=== PATIENT | female | born 1960 | race Caucasian/White ===

== ENCOUNTER 2020-07-13 09:54 | Outpatient (REF) | payer OTHER, SELFPAY ==
[2020-07-13 11:49] LABS: Alanine Aminotransferase 19 U/L (0-31); Anion Gap 13 (12-20); Aspartate Amino Transferase 19 U/L (5-31); Blood Urea Nitrogen 13 mg/dL (9-16); Calcium 9.3 mg/dL (8.4-10.2); Carbon Dioxide 26 mmol/L (22-29); Chloride 110 mmol/L (96-108); Cholesterol 180 mg/dL; Estimated Glomerular Filt Rate > 60; Glucose Fasting 104 mg/dL (60-99); HDL Cholesterol 53 mg/dL; LDL Cholesterol Calculated 112 mg/dl; Potassium 4.3 mmol/L (3.3-5.1); Sodium 145 mmol/L (135-145); Triglycerides 77 mg/dL
[2020-07-13 12:11] LABS: Vitamin D 25-OH Total 42.8 ng/mL (>30)
== END 2020-07-13 09:55 | disposition home or self-care (01) ==
LOC: HO.HMGCLDS 09:54
PROVIDERS: PCP Internal Medicine; Visit Provider Internal Medicine
DX: E78.5 Hyperlipidemia, unspecified (principal); I10 Essential (primary) hypertension; Z78.0 Asymptomatic menopausal state
CPT/HCPCS: 36415; 80048; 80061; 82306; 84450; 84460

== ENCOUNTER 2021-06-01 08:52 | Outpatient (REF) | payer OTHER, SELFPAY ==
[2021-06-01 11:32] LABS: MANUAL DIFF FLAG NO
[2021-06-01 11:38] LABS: Basophils Absolute Auto 0.1 X10*3/uL (0.0-0.2); Basophils Percent Auto 0.9 % (0-2); Eosinophils Absolute Auto 0.4 X10*3/uL (0.0-0.4); Eosinophils Percent Auto 3.8 % (0-4); Hematocrit 44.8 % (37.0-47.0); Hemoglobin 14.6 g/dl (12.0-16.0); Imm Gran Abs Auto 0.11 X10*3/uL (0.00-0.03); Imm Gran Pct Auto 1.1 % (0.0-0.4); Lymphocytes Absolute Auto 1.9 X10*3/uL (1.2-4.9); Mean Corpuscular HGB Conc 32.6 g/dl (31.0-35.0); Mean Corpuscular Hemoglobin 29.1 pg (27.0-33.0); Mean Corpuscular Volume 89.2 fL (80.0-98.0); Mean Platelet Volume 11.4 fL (9.4-12.3); Monocytes Absolute Auto 0.7 X10*3/uL (0.1-1.2); Monocytes Percent Auto 6.9 % (2-11); Neutrophils Absolute Auto 6.5 x10*3/uL (2.0-8.3); Neutrophils Percent Auto 67.3 % (45-73); Platelet Count 229 X10*3/uL (160-400); Red Blood Count 5.02 X10*6/uL (4.20-5.50); Red Cell Distribution Width 13.1 % (11.0-16.0); White Blood Count 9.7 X10*3/uL (4.8-10.8)
[2021-06-01 11:46] LABS: Estimated Average Glucose 114 mg/dL; Hemoglobin A1c % 5.6 %
[2021-06-01 12:13] LABS: Vitamin D 25-OH Total 30.7 ng/mL (>30)
[2021-06-01 12:22] LABS: Alanine Aminotransferase 15 U/L (0-31); Anion Gap 14 (12-20); Aspartate Amino Transferase 18 U/L (5-31); Blood Urea Nitrogen 12 mg/dL (9-16); Calcium 9.7 mg/dL (8.4-10.2); Carbon Dioxide 25 mmol/L (22-29); Chloride 110 mmol/L (96-108); Cholesterol 212 mg/dL; Estimated Glomerular Filt Rate > 60; Glucose Fasting 98 mg/dL (60-99); HDL Cholesterol 46 mg/dL; LDL Cholesterol Calculated 135 mg/dl; Potassium 3.9 mmol/L (3.3-5.1); Sodium 145 mmol/L (135-145); Triglycerides 159 mg/dL
== END 2021-06-01 08:53 | disposition home or self-care (01) ==
LOC: HO.HMGCLDS 08:52
PROVIDERS: Visit Provider Internal Medicine
DX: Z00.01 Encounter for general adult medical examination with abnormal findings (principal); Z14.8 Genetic carrier of other disease; E78.5 Hyperlipidemia, unspecified; I10 Essential (primary) hypertension
CPT/HCPCS: 36415; 80048; 80061; 82306; 83036; 84450; 84460; 85025

== ENCOUNTER 2021-06-24 16:04 | Outpatient (REF) | payer OTHER, SELFPAY ==
--- NOTE | ~2021-06-24 | MM_ITS ---
EXAMINATION: MM SCREENING DIGITAL BREAST TOMOSYNTHESIS, BILATERAL CLINICAL INFORMATION: Screening. Asymptomatic. The lifetime risk of breast cancer based on the Tyrer-Cuzick Model is 4%. COMPARISON: Mammography: 09/07/2018, 07/18/2017, 05/23/2016 TECHNIQUE: Digital breast tomosynthesis is performed in both the craniocaudal and mediolateral oblique views along with computer-aided detection (CAD). Synthesized 2D images are generated from the tomosynthesis. Additional left CC view is provided. FINDINGS: There are scattered areas of fibroglandular density (ACR BI-RADS breast composition Category b). There are no significant masses, abnormal calcifications, or other abnormalities. Parenchymal pattern is similar to prior studies. There are no significant changes. MM/MM tomosynthesis screening BI IMPRESSION: No mammographic evidence of malignancy. ASSESSMENT: BI-RADS 1: Negative RECOMMENDATION: Routine annual mammography screening. This patient's information was entered into a reminder system with a target due date for their next mammogram.
== END 2021-06-24 16:05 | disposition home or self-care (01) ==
LOC: HO.MAMMO 16:04
PROVIDERS: PCP Internal Medicine; Visit Provider Internal Medicine
DX: Z12.31 Encounter for screening mammogram for malignant neoplasm of breast (principal)
CPT/HCPCS: 77063; 77067

== ENCOUNTER 2022-05-31 09:29 | Outpatient (REF) | payer OTHER, SELFPAY ==
[2022-05-31 12:04] LABS: Alanine Aminotransferase 13 U/L (0-31); Anion Gap 15 (12-20); Aspartate Amino Transferase 18 U/L (5-31); Blood Urea Nitrogen 13 mg/dL (9-16); Calcium 9.5 mg/dL (8.4-10.2); Carbon Dioxide 23 mmol/L (22-29); Chloride 109 mmol/L (96-108); Cholesterol 218 mg/dL; Estimated Glomerular Filt Rate > 60; Glucose Fasting 105 mg/dL (60-99); HDL Cholesterol 46 mg/dL; LDL Cholesterol Calculated 140 mg/dl; Potassium 3.7 mmol/L (3.3-5.1); Sodium 143 mmol/L (135-145); Triglycerides 163 mg/dL
[2022-05-31 12:06] LABS: Vitamin D 25-OH Total 32.9 ng/mL (>30)
== END 2022-05-31 09:30 | disposition home or self-care (01) ==
LOC: HO.HMGCLDS 09:29
PROVIDERS: PCP Internal Medicine; Visit Provider Internal Medicine
DX: R73.01 Impaired fasting glucose (principal); N95.9 Unspecified menopausal and perimenopausal disorder; I10 Essential (primary) hypertension; E78.5 Hyperlipidemia, unspecified
CPT/HCPCS: 36415; 80048; 80061; 82306; 84450; 84460

== ENCOUNTER 2022-06-27 08:26 | Outpatient (REF) | payer OTHER, SELFPAY ==
--- NOTE | ~2022-06-27 | MM_ITS ---
EXAMINATION: MM SCREENING DIGITAL BREAST TOMOSYNTHESIS, BILATERAL CLINICAL INFORMATION: Screening. Asymptomatic. The lifetime risk of breast cancer based on the Tyrer-Cuzick Model is 4%. COMPARISON: Multiple prior mammography exams, most recent 06/24/2021. TECHNIQUE: Digital breast tomosynthesis is performed in both the craniocaudal and mediolateral oblique views along with computer-aided detection (CAD). Synthesized 2D images are generated from the tomosynthesis. Additional exaggerated right CC view is provided. FINDINGS: There are scattered areas of fibroglandular density (ACR BI-RADS breast composition Category b). Right CC view has 0.8 cm nodular asymmetric density adjacent to lateral margin pectoralis muscle 12.5 cm from nipple and extending beyond the [id number]. Finding is not demonstrated on the additional exaggerated CC projection nor on the MLO view which includes abundant muscle. There is a dermal lesion close to the expected area on prior right MLO mammography 06/24/2021. Patient will be recalled for further evaluation. Remainder of the breast demonstrate parenchymal pattern similar to prior studies with no developing density or interval mass or architectural abnormality no abnormal calcifications. The axilla and skin contours are unremarkable.. MM/MM tomosynthesis screening BI IMPRESSION: Right: -Nodular asymmetric density extending beyond field of view limited to right CC projection. This may represent artifact from dermal lesion or muscle contour, or perhaps posterior lateral node partially imaged. Remainder of right breast unremarkable. Left: -No mammographic evidence of malignancy. ASSESSMENT: BI-RADS 0: Incomplete - Need Additional Imaging Evaluation RECOMMENDATION: 1. Assess for dermal lesion and obtain images with skin marker if applicable. 2. Otherwise, targeted ultrasound posterior outer right breast. 3. Radiology department staff will contact the patient for additional imaging. This patient's information was entered into a reminder system with a target due date for their next mammogram.
== END 2022-06-27 08:27 | disposition home or self-care (01) ==
LOC: HO.MAMMO 08:26
PROVIDERS: Visit Provider Internal Medicine
DX: Z12.31 Encounter for screening mammogram for malignant neoplasm of breast (principal)
CPT/HCPCS: 77063; 77067

== ENCOUNTER 2022-07-12 08:54 | Outpatient (REF) | payer OTHER, SELFPAY ==
--- NOTE | ~2022-07-12 | US_ITS ---
EXAMINATION: US DIAGNOSTIC ULTRASOUND BREAST, RIGHT CLINICAL INFORMATION: Recall from screening for nodular asymmetric density right CC view at posterior outer film margin, adjacent to muscle. COMPARISON: Multiple prior mammography, most recent 06/27/2022. TECHNIQUE: Ultrasound right breast is performed with grayscale imaging and color Doppler without and with harmonics. Exam is targeted to the deep breast along the chest wall soft tissues. FINDINGS: Clinical inspection of the breast shows a small mole lower outer breast not corresponding to size or location of the finding for recall. Ultrasound demonstrates a benign lymph node 9:00 position right lateral breast 12 cm from nipple, similar location and size to the finding on recent mammography. This shows normal kings architecture and color flow. This is most likely responsible for finding on recent imaging. Additional ultrasound along the posterior right breast shows normal breast parenchyma and normal chest wall tissues. There is no cystic or solid mass or architectural abnormality. Results are discussed with the patient at time of visit. US/US breast RT limited IMPRESSION: -Normal lymph node right breast corresponding to finding on recent mammography. -No additional findings. ASSESSMENT: BI-RADS 2: Benign RECOMMENDATION: Routine annual mammography screening. This patient's information was entered into a reminder system with a target due date for their next mammogram.
== END 2022-07-12 08:55 | disposition home or self-care (01) ==
LOC: HO.MAMMO 08:54
PROVIDERS: PCP Internal Medicine; Visit Provider Internal Medicine
DX: R92.2 Inconclusive mammogram (principal)
CPT/HCPCS: 76642

== ENCOUNTER 2022-11-22 08:19 | Outpatient (AMB) | payer OTHER, SELFPAY ==
--- NOTE | 2022-11-22 08:24 | A.OFFPC_ITS ---
Vital Signs 11/22/22 08:27 11/22/22 09:00 Height 5 ft 5 in Weight 170 lb BMI 28.3 BP 190/100 H 160/90 H Blood Pressure Location Rt brachial Lt brachial Position Sitting Sitting Pulse 60 Pulse Source Pulse Oximeter Pulse Oximetry (%) 99 Oxygen Delivery Method Room Air Intake Visit Reasons: Annual PE Intake Note: Pt is here today for her PE: Pt says hasn't taken her b/p this morning Allergies vaccine adjuvant system, AS01B lipo [Shingrix (PF)] Allergy (Unknown, Verified 11/22/22 08:38) rash varicella-zoster virus glycoprotein [Shingrix (PF)] Allergy (Unknown, Verified 11/22/22 08:38) rash Medication List - Last Reconciled 11/22/22 by Joelle Chaudhry MD albuterol sulfate 90 mcg/actuation 2 inhalations inhalation Q4-6H PRN atorvastatin 20 mg PO DAILY calcium carb,lactat-vitamin D3 200 mg-6.25 mcg (250 unit) 2 tabs PO QAM cholecalciferol (vitamin D3) 25 mcg PO DAILY fluticasone propionate 110 mcg/actuation (Flovent HFA) 2 puffs inhalation Q12H lansoprazole 30 mg PO DAILY lisinopril 10 mg PO DAILY lorazepam 0.5 mg PO BEDTIME PRN multivitamin 1 tab PO DAILY quetiapine 100 mg PO BEDTIME sertraline 150 mg (1.5 x 100 mg) PO DAILY zolpidem 10 mg PO BEDTIME PRN Tobacco use date assessed: 11/22/22 Dental Screening Dental Screen Date: 11/22/22 Did you have a dental visit in the last 12 months?: Yes Did you have a dental problem in the last 6 months where you did not have access to dental care?: No Was dental information given to patient?: Patient has dentist HPI Annual PE HPI Details 62-year-old lady here today for her physical exam, she has hypertension currently taking lisinopril 10 mg daily he, but forgot to take her blood pressure medicine this morning. Blood Pressure is high today, but patient denies any headache, no lightheadedness, no chest pain or shortness of breath . She has lost weight, has been exercising and following low-cholesterol low carb diet. Patient states that she feels better now that she has lost some weight. Still has problems with insomnia for which she takes zolpidem. 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 He has depression, currently stable controlled on sertraline and quetiapine, takes lorazepam as needed for acute attacks anxiety. Has mild intermittent asthma, these only albuterol inhalers as needed, and is on Flovent 110 mcg 2 puffs inhalation twice a day. Up-to-date with her screening mammogram, no longer gets Pap smears due to previousTAH-BSO will cancer prophylaxis. 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 Depression with anxiety Dyslipidemia Essential hypertension GERD (gastroesophageal reflux disease) Impaired fasting glucose Mild intermittent asthma Primary insomnia Wound, open, knee, lower leg, or ankle with complication Surgical History Amblyopia History of appendectomy History of hemorrhoidectomy History of oral surgery History of total hysterectomy with bilateral salpingo-oophorectomy (BSO) Family History Father Prostate cancer Hypertension Mother Colon cancer Vasculitis Mental health disorder Brother Colon cancer Sister Endometrial cancer Maternal Grandmother Colon cancer Social History Housing: Apartment Alcohol intake: current Patient Tobacco Use Status: Former Tobacco user e-Cigarette/Vaping Use: Never Used service: No Current occupational status: employed Cognitive needs: No Hearing needs: No Vision needs: Yes Questionnaire Thrive Questionnaire Date Thrive assessed: 05/19/22 AUDIT C Alcohol Use Questionnaire (AUDIT-C) 1. How often do you have a drink containing alcohol?: Monthly or less 2. How many drinks containing alcohol do you have on a typical day when you are drinking?: 1 or 2 3. How often do you have six or more drinks on one occasion?: Never Total Score: 1 LULA-7 AMB Questionnaire LULA-7 Date LULA - 7 assessed: 05/19/22 Source: Developed by Drs. Manuel Vale, Eneida Hernandez, Sancho Magaña and colleagues, with an educational hamzah from [employer]. ACT Questionnaire In the past 4 weeks, how much of the time did your asthma keep you from getting as much done at work, school or at home?: None of the time During the past 4 weeks, how often have you had shortness of breath?: Not at all During the past 4 weeks, how often have you had to use your rescue inhaler or nebulizer medication?: Not at all How would you rate your asthma control during the past 4 weeks?: Well controlled ACT Interpretation: Negative Score: 19 Review of Systems Const Denies body aches, Reports difficulty sleeping (Takes zolpidem as needed), Denies headache(s), Denies lethargy, Denies malaise, Denies weakness and Reports weight loss Eyes Details: Goes to [facility] for routine eye care, no history of glaucoma, no cataracts seen Denies change in vision and Denies dry eyes ENT Details: Complaining of decreased hearing right ear , has frequent wax buildup Reports no additional complaints, Denies vertigo, Denies dizziness, Denies headache(s) and Denies disequilibrium Card Reports no additional complaints Resp Reports no additional complaints GI Reports no additional complaints Reports no additional complaints Musc Denies abnormal gait and Reports stiffness Skin/Breast Denies breast swelling, Denies breast pain, Denies breast mass, Denies dry skin, Denies lesions and Denies rash Neuro Denies Neuro-related abnormal movements, Denies abnormal gait, Denies vertigo, Denies dizziness, Denies headache(s), Denies focal weakness, Denies seizure-like activity, Denies disequilibrium and Denies weakness Psych Reports as per HPI Endo Reports no additional complaints Gary/Lymph Reports no additional complaints Aller/Immun Reports no additional complaints Physical exam (Primary Care) Vital Signs: Last Vital Signs Pulse 60 11/22/22 08:27 BP 160/90 H 11/22/22 09:00 Pulse Ox 99 11/22/22 08:27 Oxygen Delivery Method Room Air 11/22/22 08:27 BMI result Body Mass Index 28.3 Tobacco/Smoking Status: Tobacco use Status Tobacco use date assessed 11/22/22 11/22/22 08:32 Patient Tobacco Use Status Former Tobacco user 11/22/22 08:32 e-Cigarette/Vaping Use Never Used 11/22/22 08:32 Thrive Assessment: Date of Thrive Assessment Date Thrive assessed 05/19/22 11/22/22 08:32 Const General: comfortable, no acute distress and alert Nutritional Appearance: obese Orientation/consciousness: patient oriented x3 Limitations: no limitations HENMT Head: Yes normocephalic Ears: external ears normal and Abnormal EAC present excessive cerumen on the right General nose exam: Normal external nose present and No nasal discharge present Face and sinus: Yes face symmetric Mouth: Normal oral and palatal mucosa present and moist mucous membranes Eyes General: appearance normal, both eyes and all related structures Neck Neck: Yes full ROM, Yes no lymphadenopathy and Yes supple Thyroid: Thyroid normal Chest Breast/axilla inspection: normal inspection of the breasts Breast/axilla palpation: normal palpation of the breasts and normal palpation of the axillae Resp Effort & Inspection: normal respiratory effort and able to speak in complete sentences Auscultation: clear to auscultation bilaterally Cardio Rate: regular rate Rhythm: regular rhythm Heart sounds: S1 normal heart sound present and S2 normal heart sound present GI Palpation (GI): Soft to palpation, nontender and no guarding Auscultation: normal bowel sounds General: Yes deferred Back/Spine/Pelvis Back: No back tenderness Skin General skin exam: no rashes or lesions noted Neuro General: patient oriented x3, gait normal, tone normal, moves all extremities, Normal light touch and pain sensation, no focal motor deficits and CN's II-XI intact bilaterally Cognition (Neuro): normal cognition Gait exam (Neuro): Normal gait present Motor exam (neuro): 5/5 motor strength present throughout Extrem General: Yes full ROM, Yes no joint enlargement, Yes no clubbing, cyanosis or edema, Yes no calf tenderness and Yes normal gait Psych Appearance: grossly normal Mental Status: mental status grossly normal Speech and movement: Normal speech and movement present Affect: normal affect Attitude: cooperative Thought process: Normal thought process present Assessment and Plan Assessment & Plan (1) Impaired fasting glucose: Code(s): R73.01 - Impaired fasting glucose Plan: Your fasting blood sugars in the past for elevated above 100 mg/dL. Impaired g lucose metabolism O2 at risk for developing diabetes mellitus type 2, as well as heart attack and stroke later on. Lifestyle changes at just weight loss, healthy eating habits, and regular exercise are important, and can prevent the progression to diabetes (2) Essential hypertension: Code(s): I10 - Essential (primary) hypertension Plan: Blood pressure today elevated, forgot to take her blood pressure medicine this morning. Patient currently asymptomatic, 12 lead EKG done showed sinus bradycardia with no acute ST-T changes. Blood pressure goalis less than 130/80. Continue lisinopril 10 mg daily, to take it today when she gets home as soon as possible. Advised to check her blood pressure at home with her own machine and goal is to go less than 130/80, call if pressure does not go down less than 150/90. Reinforced importance of following a low sodium diet, getting regular exercise, and lowering stress levels. Schedule an nurse navigator visit to check pressure later this week or next week (3) Dyslipidemia: Code(s): E78.5 - Hyperlipidemia, unspecified Plan: Currently on atorvastatin 20 mg daily, fasting lipid panel ordered, continue with adhering to healthy eating habits and regular exercise (4) Annual visit for general adult medical examination with abnormal findings: Code(s): Z00.01 - Encounter for general adult medical examination with abnormal findings Plan: Will check appropriate labs. Currently sees her dentist every 6 months, and has an appointment later this week to get dental implants she goes to [facility] for her regular eye exams. Take adequate calcium in diet and vitamin-D 3 at 2000 IU per cap once a day, in addition to weight-bearing exercises to help maintain good muscle tone and weight control. Instructed to do self-breast exam, and is up-to-date with her yearly mammogram, will repeat another bone density scan together with next year's mammogram . Reminded to get her COVID booster, gets yearly flu vaccine, up-to-date her pneumonia vaccination and Tdap as well as shingles vaccine your she is scheduled for repeat colonoscopy Dr. 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 Due for repeat colonoscopy next year with Dr. Maza (6) Mild intermittent asthma: Code(s): J45.20 - Mild intermittent asthma, uncomplicated Plan: Continue with fluticasone propionate and albuterol inhaler as needed (7) Depression with anxiety: Code(s): F41.8 - Other specified anxiety disorders Plan: Stable and controlled on sertraline, quetiapine and takes lorazepam as needed (8) Primary insomnia: Code(s): F51.01 - Primary insomnia Plan: Takes zolpidem as needed (9) GERD (gastroesophageal reflux disease): Code(s): K21.9 - Gastro-esophageal reflux disease without esophagitis Plan: Controlled on lansoprazole which he takes daily (10) Impacted cerumen of right ear: Code(s): H61.21 - Impacted cerumen, right ear Plan: Successful manual removal of cerumen from right ear canal using lighted curette Orders: Orders Alanine Aminotransferase 11/22/22 E78.5 - Hyperlipidemia, unspecified, I10 - Essential (primary) hypertension, R73.01 - Impaired fasting glucose Aspartate Amino Transferase 11/22/22 E78.5 - Hyperlipidemia, unspecified, I10 - Essential (primary) hypertension, R73.01 - Impaired fasting glucose Basic Metabolic Panel Fasting 11/22/22 E78.5 - Hyperlipidemia, unspecified, I10 - Essential (primary) hypertension, R73.01 - Impaired fasting glucose Hemoglobin A1c 11/22/22 E78.5 - Hyperlipidemia, unspecified, I10 - Essential (primary) hypertension, R73.01 - Impaired fasting glucose Lipid Panel 11/22/22 E78.5 - Hyperlipidemia, unspecified, I10 - Essential (primary) hypertension, R73.01 - Impaired fasting glucose Vitamin D 25-OH Total 11/22/22 E78.5 - Hyperlipidemia, unspecified, I10 - Essential (primary) hypertension, R73.01 - Impaired fasting glucose AMB EKG-In Office 11/22/22 I10 - Essential (primary) hypertension Coding Level of Care Code Est Pt Prev Care [id number]([id number]) Diagnoses Impaired fasting glucose R73.01 Essential hypertension I10 Dyslipidemia E78.5 Annual visit for general adult medical examination with abnormal findings Z00.01 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
[2022-11-22 08:27] VITALS: BP 190/100; PULSE 60; O2SAT 99; BMI 28.3
[2022-11-22 09:00] VITALS: BP 160/90
== END 2022-11-22 09:13 | disposition home or self-care (01) ==
PROVIDERS: Visit Provider Internal Medicine
DX: Z00.01 Encounter for general adult medical examination with abnormal findings (principal); I10 Essential (primary) hypertension; J45.20 Mild intermittent asthma, uncomplicated; F41.8 Other specified anxiety disorders; R73.01 Impaired fasting glucose; E78.5 Hyperlipidemia, unspecified; Z14.8 Genetic carrier of other disease; F51.01 Primary insomnia; K21.9 Gastro-esophageal reflux disease without esophagitis; H61.21 Impacted cerumen, right ear
CPT/HCPCS: 93000; 99396

== ENCOUNTER 2022-12-28 08:39 | Outpatient (REF) | payer OTHER, SELFPAY ==
[2022-12-28 12:09] LABS: Estimated Average Glucose 94 mg/dL; Hemoglobin A1c % 4.9 % (<6.0)
[2022-12-28 12:38] LABS: Alanine Aminotransferase 19 U/L (0-31); Anion Gap 14 (12-20); Aspartate Amino Transferase 20 U/L (5-31); Blood Urea Nitrogen 13 mg/dL (9-16); Calcium 10.2 mg/dL (8.4-10.2); Carbon Dioxide 26 mmol/L (22-29); Chloride 110 mmol/L (96-108); Cholesterol 195 mg/dL (<200); Estimated Glomerular Filt Rate > 60; Glucose Fasting 105 mg/dL (60-99); HDL Cholesterol 51 mg/dL (>40); LDL Cholesterol Calculated 122 mg/dL (<100); Potassium 4.4 mmol/L (3.3-5.1); Sodium 146 mmol/L (135-145); Triglycerides 112 mg/dL (<150)
[2022-12-28 13:03] LABS: Vitamin D 25-OH Total 41.4 ng/mL (>30)
== END 2022-12-28 08:40 | disposition home or self-care (01) ==
LOC: HO.HMGCLDS 08:39
PROVIDERS: PCP Internal Medicine; Visit Provider Internal Medicine
DX: I10 Essential (primary) hypertension (principal); R73.01 Impaired fasting glucose; E78.5 Hyperlipidemia, unspecified
CPT/HCPCS: 36415; 80048; 80061; 82306; 83036; 84450; 84460

== ENCOUNTER 2023-03-13 13:09 | Outpatient (AMB) | payer OTHER, SELFPAY ==
[2023-03-13 14:00] VITALS: BP 110/70; PULSE 72; O2SAT 98; BMI 28.1
--- NOTE | 2023-03-13 14:00 | MHC.PC.OV ---
Vital Signs 03/13/23 14:00 Height 5 ft 5 in Weight 169 lb BMI 28.1 BP 110/70 Blood Pressure Location Rt brachial Position Sitting Pulse 72 Pulse Source Pulse Oximeter Pulse Oximetry (%) 98 Oxygen Delivery Method Room Air Intake Visit Reasons: 3 month Follow up HTN Intake Note: pt is here to follow up on lab results and HTN pt would like her flu vaccine today Allergies vaccine adjuvant system, AS01B lipo [Shingrix (PF)] Allergy (Unknown, Verified 03/13/23 14:21) rash varicella-zoster virus glycoprotein [Shingrix (PF)] Allergy (Unknown, Verified 03/13/23 14:21) rash Medication List - Last Reconciled 03/13/23 by Joelle Chaudhry MD albuterol sulfate 90 mcg/actuation 2 inhalations inhalation Q4-6H PRN amlodipine 10 mg (2 x 5 mg) PO DAILY 90 days atorvastatin 20 mg PO DAILY calcium carb,lactat-vitamin D3 200 mg-6.25 mcg (250 unit) 2 tabs PO QAM cholecalciferol (vitamin D3) 25 mcg PO DAILY fluticasone propionate 110 mcg/actuation (Flovent HFA) 2 puffs inhalation Q12H lansoprazole 30 mg PO DAILY lisinopril 10 mg PO DAILY lorazepam 0.5 mg PO BEDTIME PRN quetiapine 100 mg PO BEDTIME sertraline 150 mg (1.5 x 100 mg) PO DAILY zolpidem 10 mg PO BEDTIME PRN Tobacco use date assessed: 11/22/22 Dental Screening Dental Screen Date: 03/13/23 Did you have a dental visit in the last 12 months?: Yes Did you have a dental problem in the last 6 months where you did not have access to dental care?: No Was dental information given to patient?: Patient has dentist HPI 3 month Follow up HTN HPI Details 62-year-old lady here today for follow-up on her hypertension. Blood pressure currently stable controlled on lisinopril 10 mg taken once a day in a.m. and amlodipine 10 mg taken once a day at night. Patient does notice some swelling in her ankles toward sent today. But this usually resolves when she elevates her legs. She also states that her breathing is better, has not had any attacks of asthma for some time now. Continues using her Flovent inhaler and rarely needing to use her albuterol rescue inhaler. Would like to get her flu shot today, but does not want to get COVID booster. 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 Essential hypertension Primary insomnia Dyslipidemia Surgical History History of oral surgery History of appendectomy Amblyopia History of total hysterectomy with bilateral salpingo-oophorectomy (BSO) History of hemorrhoidectomy Family History Father Prostate cancer Hypertension Mother Colon cancer Vasculitis Mental health disorder Brother Colon cancer Sister Endometrial cancer Maternal Grandmother Colon cancer Social History Housing: Apartment Alcohol intake: current Patient Tobacco Use Status: Former Tobacco user e-Cigarette/Vaping Use: Never Used service: No Current occupational status: employed Cognitive needs: No Hearing needs: No Vision needs: Yes Questionnaire PHQ-9 Over the last 2 weeks, how often have you been bothered by any of the following problems? 1. Little interest or pleasure in doing things: several days 2. Feeling down, depressed, or hopeless: several days 3. Trouble falling or staying asleep, or sleeping too much: not at all 4. Feeling tired or having little energy: more than half the days 5. Poor appetite or overeating: several days 6. Feeling bad about yourself - or that you are a failure or have let yourself or your family down: not at all 7. Trouble concentrating on things, such as reading the newspaper or watching television: not at all 8. Moving or speaking so slowly that other people could have noticed. Or the opposite - being so fidgety or restless that you have been moving around a lot more than usual: several days 9. Thoughts that you would be better off or of hurting yourself in some way: not at all Total score: 6 Source: Developed by Drs. Manuel Vale, Eneida Hernandez, Sancho Magaña and colleagues, with an educational hamzah from [employer]. Thrive Questionnaire Date Thrive assessed: 03/13/23 I am a: Patient What is your living situation today?: I have a steady place to live Within the past 12 months, did the food you bought not last and you didn't have the money to get more?: Never true Within the past 12 months, did you worry whether your food would run out before you got money to buy more?: Never true Do you have trouble paying for medicines?: No Do you have trouble getting transportation to medical appointments?: No Do you have trouble paying your heating and electricity bill?: No Do you have trouble taking care of your child, family member or friend?: No Do you have trouble with day-to-day activities such as bathing, preparing meals, shopping, managing finances, etc.?: No Are you currently unemployed and looking for a job?: No Are you interested in more education?: No AUDIT C Alcohol Use Questionnaire (AUDIT-C) 1. How often do you have a drink containing alcohol?: Monthly or less 2. How many drinks containing alcohol do you have on a typical day when you are drinking?: 1 or 2 3. How often do you have six or more drinks on one occasion?: Never Total Score: 1 LULA-7 AMB Questionnaire LULA-7 Date LULA - 7 assessed: 03/13/23 Feeling nervous, anxious, or on edge: 2 = More than half the days Not being able to stop or control worryin = Several days Worrying too much about different things: 1 = Several days Trouble relaxin = Several days Being so restless that it is hard to sit still: 1 = Several days Becoming easily annoyed or irritable: 0 = Not at all Feeling afraid as if something awful might happen: 0 = Not at all Total LULA-7 score (0-4 normal; 5-9 mild; 10-14 moderate; 15-21 severe): 6 Source: Developed by Edgard Enniset B.W. David, Sancho Magaña and colleagues, with an educational hamzah from [employer]. Review of Systems Const Denies body aches, Reports difficulty sleeping (Takes zolpidem as needed), Denies headache(s), Denies lethargy, Denies malaise, Denies weakness and Reports weight loss Eyes Details: Goes to [facility] for routine eye care, no history of glaucoma, no cataracts seen Denies change in vision and Denies dry eyes ENT Details: Complaining of decreased hearing right ear , has frequent wax buildup Reports no additional complaints, Denies vertigo, Denies dizziness, Denies headache(s) and Denies disequilibrium Card Reports no additional complaints Resp Reports no additional complaints GI Reports no additional complaints Reports no additional complaints Musc Denies abnormal gait and Reports stiffness Skin/Breast Denies breast swelling, Denies breast pain, Denies breast mass, Denies dry skin, Denies lesions and Denies rash Neuro Denies Neuro-related abnormal movements, Denies abnormal gait, Denies vertigo, Denies dizziness, Denies headache(s), Denies focal weakness, Denies seizure-like activity, Denies disequilibrium and Denies weakness Psych Reports as per HPI Endo Reports no additional complaints Gary/Lymph Reports no additional complaints Aller/Immun Reports no additional complaints Physical exam (Primary Care) Vital Signs: Last Vital Signs Pulse 72 03/13/23 14:00 BP 110/70 03/13/23 14:00 Pulse Ox 98 03/13/23 14:00 Oxygen Delivery Method Room Air 03/13/23 14:00 BMI result Body Mass Index 28.1 Tobacco/Smoking Status: Tobacco use Status Tobacco use date assessed 11/22/22 03/13/23 14:02 Patient Tobacco Use Status Former Tobacco user 03/13/23 14:02 e-Cigarette/Vaping Use Never Used 03/13/23 14:02 PHQ-9: PHQ-9 Score PHQ-9: Total score 6 03/13/23 14:22 Thrive Assessment: Date of Thrive Assessment Date Thrive assessed 03/13/23 03/13/23 14:08 Const General: comfortable, no acute distress and alert Nutritional Appearance: obese Orientation/consciousness: patient oriented x3 Limitations: no limitations HENMT Head: Yes normocephalic Ears: external ears normal and Abnormal EAC present excessive cerumen on the right General nose exam: Normal external nose present and No nasal discharge present Face and sinus: Yes face symmetric Mouth: Normal oral and palatal mucosa present and moist mucous membranes Eyes General: appearance normal, both eyes and all related structures Neck Neck: Yes full ROM, Yes no lymphadenopathy and Yes supple Thyroid: Thyroid normal Chest Breast/axilla inspection: normal inspection of the breasts Breast/axilla palpation: normal palpation of the breasts and normal palpation of the axillae Resp Effort & Inspection: normal respiratory effort and able to speak in complete sentences Auscultation: clear to auscultation bilaterally Cardio Rate: regular rate Rhythm: regular rhythm Heart sounds: S1 normal heart sound present and S2 normal heart sound present GI Palpation (GI): Soft to palpation, nontender and no guarding Auscultation: normal bowel sounds General: Yes deferred Back/Spine/Pelvis Back: No back tenderness Skin General skin exam: no rashes or lesions noted Neuro General: patient oriented x3, gait normal, tone normal, moves all extremities, Normal light touch and pain sensation, no focal motor deficits and CN's II-XI intact bilaterally Cognition (Neuro): normal cognition Gait exam (Neuro): Normal gait present Motor exam (neuro): 5/5 motor strength present throughout Extrem General: Yes full ROM, Yes no joint enlargement, Yes no clubbing, cyanosis or edema, Yes no calf tenderness and Yes normal gait Psych Appearance: grossly normal Mental Status: mental status grossly normal Speech and movement: Normal speech and movement present Affect: normal affect Attitude: cooperative Thought process: Normal thought process present Office Procedures Flu Questionnaire Does the patient have a severe egg allergy?: No Does the patient have severe life threatening allergies?: No Does the patient have a fever or illness today?: No Has the patient ever had Guillain-Pelahatchie Syndrome?: No Has the patient ever had any past reaction to a flu shot?: No Immunizations flu vacc [id number] 6mos up(PF) 60 mcg(15 mcgx4)/0.5 mL IM syringe Performing Provider: oJelle Chaudhry MD Performing Location[place] [facility] Administered by: Carmen Serrano CMA on 03/13/23 14:14 Dose Route Admin Location Dispensed Lot Number Expiration Date NDC Plastic Frame Inserter 0.5 mL IM Left Deltoid 0.5 mL [id number] 10/22/23 07223-409-83 [employer] VIS Given Date VIS Provided VIS Publication Date 03/13/23 Single Vaccine 20 Eligibility Eligibility Date Funding Source Not VFC Eligible 03/13/23 Private Results Reviewed Results Reviewed: Name: Pedro Luis Dorman Age/Sex: 62/F : 1960 Unit#: [id number] Attend Dr: Joelle Chaudhry MD Re12/28/22 Status: DEP REF Location: [facility] Disch: SPEC : [id number] HAIM: 12/28/22 STATUS: COMP REQ : [id number] RECD: 12/28/22-[address]: Joelle Chaudhry MD COMP: 12/28/22-1302 ENTERED: 12/28/22-[address]: ORDERED: Met Prof Fast, AST, ALT, Lipid Panel, Vitamin D 25-OH Test Result Flag Reference Site Sodium 146 H 135-145 mmol/L Potassium 4.4 3.3-5.1 mmol/L CL 110 H 96-108 mmol/L CO2 26 22-29 mmol/L Gap 14 12-20 BUN 13 9-16 mg/dL Creat 0.77 0.5-1.4 mg/dL EGFR > 60 NOTE: For -Armenian individuals, multiply the result by 1.210. Chronic Kidney Disease: Estimated GFR < 60 mL/min/1.73m2 Severe Kidney Disease: Estimated GFR < 15 mL/min/1.73m2 FBS 105 H 60-99 mg/dL A fasting glucose from 100-125 mg/dl is considered impaired (pre-diabetes). CA 10.2 # 8.4-10.2 mg/dL AST (GOT) 20 5-31 U/L ALT (GPT) 19 0-31 U/L Triglyceride 112 <150 mg/dL Desirable Triglyceride: less than 150 mg/dL Borderline High Triglyceride 150-199 mg/dL High Triglyceride: 200-499 mg/dL Very High Triglyceride: greater than or equal to 5OO mg/dL Cholesterol 195 <200 mg/dL Desirable Cholesterol: less than 200 mg/dL Borderline High Cholesterol: 200-239 mg/dL High Cholesterol: greater than 239 mg/dL LDL Calculated 122 H <100 mg/dL Desirable LDL: less than 100 mg/dL Near Optimal/Above Optimal LDL: 110-129 mg/dL Borderline High LDL: 130-159 mg/dL High LDL: 160-189 mg/dL Very High LDL: greater than or equal to 190 mg/dL HDL 51 >40 mg/dL Desirable HDL: greater than 40 mg/dL Note: This HDL assay may give artificially low results in patients with liver disease. Vit D 25-OH Tot 41.4 >30 ng/mL Health Based Reference Values* < 20 ng/mL Deficient 20-30 ng/mL Insufficient > 30 ng/mL Sufficient ENTERED: 12/28/[address] [facility] [address]: ORDERED: Hgb A1c Test Result Flag Reference Site A1c % 4.9 <6.0 % Hemoglobin A1C Reference Range Adults: 4.8 - 6.0 % Non diabetic: < 6.0 % Goal: < 7.0 % Additional Action Suggested: > 8.0 % Assessment and Plan Assessment & Plan (1) Essential hypertension: Code(s): I10 - Essential (primary) hypertension Plan: Blood pressure at goal of less than 130/80. Continue with current medication. Reinforced importance of following a low sodium diet, getting regular exercise, and lowering stress levels. (2) Dyslipidemia: Code(s): E78.5 - Hyperlipidemia, unspecified Plan: Reviewed recent fasting lipid profile with patient with levels within normal limit . Continue with atorvastatin 20 mg daily , in addition to adherence to low-cholesterol diet and regular exercise, at least 30 minutes 3 to 4 times a week. Advised patient to make healthy food choices, eat more fruits, vegetables, whole grains, wild caught fish and low-fat dairy. Limit amount of meat and fried or fatty food products, as well as processed foods and fast foods. Follow-up scheduled with repeat fasting lipid panel in October 2023 prior to next visit (3) Depression with anxiety: Code(s): F41.8 - Other specified anxiety disorders Plan: Stable controlled on sertraline, quetiapine and lorazepam as needed. (4) Mild intermittent asthma: Code(s): J45.20 - Mild intermittent asthma, uncomplicated Plan: Controlled with Flovent, removed needing to use her albuterol inhaler for episodes of bronchospasm. (5) Impaired fasting glucose: Code(s): R73.01 - Impaired fasting glucose Plan: Latest hemoglobin A1c is at 4.9%. (6) Primary insomnia: Code(s): F51.01 - Primary insomnia Plan: Refill sent for zolpidem 10 mg 1 tablet at bedtime as needed Orders: Orders Basic Metabolic Panel Fasting 11/13/23 E78.5 - Hyperlipidemia, unspecified, F41.8 - Other specified anxiety disorders, F51.01 - Primary insomnia, I10 - Essential (primary) hypertension, J45.20 - Mild intermittent asthma, uncomplicated, R73.01 - Impaired fasting glucose, Z78.0 - Asymptomatic menopausal state Alanine Aminotransferase 11/13/23 E78.5 - Hyperlipidemia, unspecified, F41.8 - Other specified anxiety disorders, F51.01 - Primary insomnia, I10 - Essential (primary) hypertension, J45.20 - Mild intermittent asthma, uncomplicated, R73.01 - Impaired fasting glucose, Z78.0 - Asymptomatic menopausal state Vitamin D 25-OH Total 11/13/23 E78.5 - Hyperlipidemia, unspecified, F41.8 - Other specified anxiety disorders, F51.01 - Primary insomnia, I10 - Essential (primary) hypertension, J45.20 - Mild intermittent asthma, uncomplicated, R73.01 - Impaired fasting glucose, Z78.0 - Asymptomatic menopausal state Hemoglobin A1c 11/13/23 E78.5 - Hyperlipidemia, unspecified, F41.8 - Other specified anxiety disorders, F51.01 - Primary insomnia, I10 - Essential (primary) hypertension, J45.20 - Mild intermittent asthma, uncomplicated, R73.01 - Impaired fasting glucose, Z78.0 - Asymptomatic menopausal state Influenza [id number] Immunization Today Z23 - Encounter for immunization Lipid Panel 11/13/23 E78.5 - Hyperlipidemia, unspecified, F41.8 - Other specified anxiety disorders, F51.01 - Primary insomnia, I10 - Essential (primary) hypertension, J45.20 - Mild intermittent asthma, uncomplicated, R73.01 - Impaired fasting glucose, Z78.0 - Asymptomatic menopausal state Aspartate Amino Transferase 11/13/23 E78.5 - Hyperlipidemia, unspecified, F41.8 - Other specified anxiety disorders, F51.01 - Primary insomnia, I10 - Essential (primary) hypertension, J45.20 - Mild intermittent asthma, uncomplicated, R73.01 - Impaired fasting glucose, Z78.0 - Asymptomatic menopausal state Medications: Refilled amlodipine take 2 tab total for 10mg daily and follow up with NN 10 mg (2 x 5 mg) PO DAILY 90 days 180 tabs 3RF HTN zolpidem 10 mg PO BEDTIME PRN 30 tabs 1RF insomnia atorvastatin 20 mg PO DAILY 90 tabs 3RF lisinopril 10 mg PO DAILY 90 tabs 3RF Coding Level of Care Code Est Pt Level 4 (95275) Diagnoses Essential hypertension I10 Dyslipidemia E78.5 Depression with anxiety F41.8 Mild intermittent asthma J45.20 Impaired fasting glucose R73.01 Primary insomnia F51.01
== END 2023-03-13 15:34 | disposition home or self-care (01) ==
PROVIDERS: PCP Internal Medicine; Visit Provider Internal Medicine
DX: I10 Essential (primary) hypertension (principal); E78.5 Hyperlipidemia, unspecified; F41.8 Other specified anxiety disorders; J45.20 Mild intermittent asthma, uncomplicated; R73.01 Impaired fasting glucose; F51.01 Primary insomnia; Z23 Encounter for immunization
CPT/HCPCS: 90471; 90686; 99214

== ENCOUNTER 2023-07-14 13:39 | Outpatient (AMB) | payer OTHER, SELFPAY ==
--- NOTE | 2023-07-14 13:39 | MHC.PC.OV ---
Intake Visit Reasons: I phone [phone] insomnia Allergies vaccine adjuvant system, AS01B lipo [Shingrix (PF)] Allergy (Unknown, Verified 07/14/23 13:57) rash varicella-zoster virus glycoprotein [Shingrix (PF)] Allergy (Unknown, Verified 07/14/23 13:57) rash Medication List - Last Reconciled 07/14/23 by Joelle Chaudhry MD albuterol sulfate 90 mcg/actuation 2 inhalations inhalation Q4-6H PRN amlodipine 10 mg (2 x 5 mg) PO DAILY 90 days atorvastatin 20 mg PO DAILY calcium carb,lactat-vitamin D3 200 mg-6.25 mcg (250 unit) 2 tabs PO QAM cholecalciferol (vitamin D3) 25 mcg PO DAILY fluticasone propionate 110 mcg/actuation (Flovent HFA) 2 puffs inhalation Q12H lansoprazole 30 mg PO DAILY lisinopril 10 mg PO DAILY lorazepam 0.5 mg PO BEDTIME PRN quetiapine 100 mg PO BEDTIME sertraline 150 mg (1.5 x 100 mg) PO DAILY trazodone 50 mg PO BEDTIME PRN Tobacco use date assessed: 07/14/23 Dental Screening Dental Screen Date: 07/14/23 Did you have a dental visit in the last 12 months?: Yes Did you have a dental problem in the last 6 months where you did not have access to dental care?: No Was dental information given to patient?: Patient has dentist HPI I phone [phone] insomnia HPI Details 63-year-old lady with generalized anxiety disorder with insomnia, here today for follow-up. She has been feeling well with anxiety controlled on sertraline, , but has been having difficulty initiating sleep been with taking zolpidem and quetiapine at bedtime . She averages only about 2-3 hours of sleep now at night for the last several weeks. She states that she is unable to shut off her mind at night, which prevents her from sleeping. 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 Depression with anxiety Essential hypertension Primary insomnia Dyslipidemia Surgical History History of oral surgery History of appendectomy Amblyopia History of total hysterectomy with bilateral salpingo-oophorectomy (BSO) History of hemorrhoidectomy Family History Father Prostate cancer Hypertension Mother Colon cancer Vasculitis Mental health disorder Brother Colon cancer Sister Endometrial cancer Maternal Grandmother Colon cancer Social History Housing: Apartment Alcohol intake: current Patient Tobacco Use Status: Former Tobacco user e-Cigarette/Vaping Use: Never Used service: No Current occupational status: employed Cognitive needs: No Hearing needs: No Vision needs: Yes Questionnaire Thrive Questionnaire Date Thrive assessed: 03/13/23 LULA-7 AMB Questionnaire LULA-7 Date LULA - 7 assessed: 03/13/23 Feeling nervous, anxious, or on edge: 1 = Several days Not being able to stop or control worryin = Several days Worrying too much about different things: 1 = Several days Trouble relaxin = Several days Being so restless that it is hard to sit still: 1 = Several days Becoming easily annoyed or irritable: 0 = Not at all Feeling afraid as if something awful might happen: 0 = Not at all Total LULA-7 score (0-4 normal; 5-9 mild; 10-14 moderate; 15-21 severe): 5 Source: Developed by Drs. Manuel Vale, Eneida Hernandez, Sancho Magaña and colleagues, with an educational hamzah from [employer]. LULA-7 Assessment Billing LULA-7 Assessment Tool: LULA-7 Assessment 62799 Review of Systems Const Denies lethargy, Denies malaise and Denies snoring ENT Reports no additional complaints Card Reports no additional complaints Resp Reports no additional complaints and Denies snoring GI Reports no additional complaints Reports no additional complaints Musc Reports stiffness Psych Reports as per HPI Endo Reports no additional complaints Aller/Immun Reports no additional complaints Physical exam (Primary Care) Tobacco/Smoking Status: Tobacco use Status Tobacco use date assessed 07/14/23 07/14/23 13:45 Patient Tobacco Use Status Former Tobacco user 07/14/23 13:42 e-Cigarette/Vaping Use Never Used 07/14/23 13:42 Thrive Assessment: Date of Thrive Assessment Date Thrive assessed 03/13/23 07/14/23 13:42 Telehealth Telehealth Location of provider rendering services: practice address Location of patient: address on file Patient Identification confirmed using: Name, : Yes Telehealth method: video Patient verbally consented to treatment: Yes Patient verbally consented to billing insurance company: Yes Patient informed of any privacy concerns related to visit: Yes Minutes spent on Phone/Video with Pt.: 15 Assessment and Plan Assessment & Plan (1) Primary insomnia: Code(s): F51.01 - Primary insomnia Plan: Stop zolpidem, prescribed trazodone 50 mg per tablet to take 1 tablet initially at bedtime for 1 week and then may increase dose to 75 mg at bedtime on the 2nd week and may go up to 100 mg at bedtime as needed for insomnia. Follow-up in 3-4 weeks to see how medication's working for her Medications: New trazodone 50 mg PO BEDTIME PRN 30 tabs 0RF sleep/insomnia/ anxiety Discontinued zolpidem Discontinued Reason: Doctor's Order 10 mg PO BEDTIME PRN 30 tabs 1RF insomnia Coding Level of Care Code Tele Est Pt Level 3 (40351) Diagnoses Primary insomnia F51.01 Additional Codes LULA-7 Assessment Billing - LULA-7 Assessment Tool: LULA-7 Assessment 69502 ([id number])
== END 2023-07-14 15:17 | disposition home or self-care (01) ==
LOC: HO.HMGC 13:39
PROVIDERS: PCP Internal Medicine; Visit Provider Internal Medicine
DX: F51.01 Primary insomnia (principal)
CPT/HCPCS: 99214

== ENCOUNTER 2023-08-02 08:01 | Outpatient (AMB) | payer OTHER, SELFPAY ==
--- NOTE | 2023-08-02 07:53 | MHC.PC.OV ---
Vital Signs 08/02/23 08:06 Height 5 ft 5 in Weight 176 lb BMI 29.3 BP 100/60 Blood Pressure Location Rt brachial Position Sitting Pulse 70 Pulse Source Pulse Oximeter Pulse Oximetry (%) 98 Oxygen Delivery Method Room Air Intake Visit Reasons: f/u med i phone [phone] Intake Note: Pt is here today for her 3 wks f/u on new med trazodone Allergies vaccine adjuvant system, AS01B lipo [Shingrix (PF)] Allergy (Unknown, Verified 08/02/23 08:23) rash varicella-zoster virus glycoprotein [Shingrix (PF)] Allergy (Unknown, Verified 08/02/23 08:23) rash Medication List - Last Reconciled 08/02/23 by Joelle Chaudhry MD albuterol sulfate 90 mcg/actuation 2 inhalations inhalation Q4-6H PRN amlodipine 10 mg (2 x 5 mg) PO DAILY 90 days atorvastatin 20 mg PO DAILY calcium carb,lactat-vitamin D3 200 mg-6.25 mcg (250 unit) 2 tabs PO QAM cholecalciferol (vitamin D3) 25 mcg PO DAILY fluticasone propionate 110 mcg/actuation (Flovent HFA) 2 puffs inhalation Q12H lansoprazole 30 mg PO DAILY lisinopril 10 mg PO DAILY lorazepam 0.5 mg PO BEDTIME PRN quetiapine 100 mg PO BEDTIME sertraline 150 mg (1.5 x 100 mg) PO DAILY trazodone 75 mg (1.5 x 50 mg) PO BEDTIME PRN Tobacco use date assessed: 08/02/23 Dental Screening Dental Screen Date: 07/26/23 Did you have a dental visit in the last 12 months?: Yes Did you have a dental problem in the last 6 months where you did not have access to dental care?: Yes Was dental information given to patient?: Patient has dentist HPI HPI Comments History of Present Illness Details Year old lady here today for follow-up on her insomnia. She has been sleeping better on trazodone 75 mg at bedtime, does not feel groggy or tired supper in the morning. She continues to take sertraline and quetiapine and as needed lorazepam tablet for her anxiety which has been controlling it. Patient states that she is feeling like her old self again, now that she is able to sleep better. She has also been referred to ENT to evaluate mass seen in her pharynx during on recent endoscopy done by Dr. Maza. Denies any hoarseness but the complains of occasional pain on swallowing. 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 Essential hypertension Primary insomnia Dyslipidemia Surgical History History of oral surgery History of appendectomy Amblyopia History of total hysterectomy with bilateral salpingo-oophorectomy (BSO) History of hemorrhoidectomy Family History Father Prostate cancer Hypertension Mother Colon cancer Vasculitis Mental health disorder Brother Colon cancer Sister Endometrial cancer Maternal Grandmother Colon cancer Social History Housing: Apartment Alcohol intake: current Patient Tobacco Use Status: Former Tobacco user e-Cigarette/Vaping Use: Never Used service: No Current occupational status: employed Cognitive needs: No Hearing needs: No Vision needs: Yes Questionnaire PHQ-9 Over the last 2 weeks, how often have you been bothered by any of the following problems? 1. Little interest or pleasure in doing things: not at all 2. Feeling down, depressed, or hopeless: not at all 3. Trouble falling or staying asleep, or sleeping too much: not at all 4. Feeling tired or having little energy: not at all 5. Poor appetite or overeating: not at all 6. Feeling bad about yourself - or that you are a failure or have let yourself or your family down: not at all 7. Trouble concentrating on things, such as reading the newspaper or watching television: not at all 8. Moving or speaking so slowly that other people could have noticed. Or the opposite - being so fidgety or restless that you have been moving around a lot more than usual: not at all 9. Thoughts that you would be better off or of hurting yourself in some way: not at all Total score: 0 Depression Screening Interpretation: Negative (Controlled on present treatment) Depression Screening Done: Yes 02265 - PHQ-9 Billing: Yes Source: Developed by Drs. Manuel Vale, Eneida Hernandez, Sancho Magaña and colleagues, with an educational hamzah from [employer] Thrive Questionnaire Date Thrive assessed: 08/02/23 I am a: Patient What is your living situation today?: I have a steady place to live Within the past 12 months, did the food you bought not last and you didn't have the money to get more?: Never true Within the past 12 months, did you worry whether your food would run out before you got money to buy more?: Never true Do you have trouble paying for medicines?: No Do you have trouble getting transportation to medical appointments?: No Do you have trouble paying your heating and electricity bill?: No Do you have trouble taking care of your child, family member or friend?: No Do you have trouble with day-to-day activities such as bathing, preparing meals, shopping, managing finances, etc.?: No Are you currently unemployed and looking for a job?: No Are you interested in more education?: No THRIVE Score: 0 AUDIT C Alcohol Use Questionnaire (AUDIT-C) 1. How often do you have a drink containing alcohol?: Never Total Score: 0 LULA-7 AMB Questionnaire LULA-7 Date LULA - 7 assessed: 08/02/23 Feeling nervous, anxious, or on edge: 0 = Not at all Not being able to stop or control worryin = Not at all Worrying too much about different things: 0 = Not at all Trouble relaxin = Not at all Being so restless that it is hard to sit still: 0 = Not at all Becoming easily annoyed or irritable: 0 = Not at all Feeling afraid as if something awful might happen: 0 = Not at all Total LULA-7 score (0-4 normal; 5-9 mild; 10-14 moderate; 15-21 severe): 0 Source: Developed by Drs. Manuel Vale, Eneida Hernandez, Sancho Magaña and colleagues, with an educational hamzah from [employer]). LULA-7 Assessment Billing LULA-7 Assessment Tool: LULA-7 Assessment 43347 Review of Systems Const All systems reviewed & are unremarkable except as noted in HPI and below Physical exam (Primary Care) Vital Signs: Last Vital Signs Pulse 70 08/02/23 08:06 BP 100/60 08/02/23 08:06 Pulse Ox 98 08/02/23 08:06 Oxygen Delivery Method Room Air 08/02/23 08:06 BMI result Body Mass Index 29.3 Tobacco/Smoking Status: Tobacco use Status Tobacco use date assessed 08/02/23 08/02/23 07:56 Patient Tobacco Use Status Former Tobacco user 08/02/23 07:56 e-Cigarette/Vaping Use Never Used 08/02/23 07:56 Depression Screening Interpretation: Negative (Controlled on present treatment) Thrive Assessment: Date of Thrive Assessment Date Thrive assessed 03/13/23 08/02/23 07:56 Const General: comfortable, no acute distress and alert Orientation/consciousness: patient oriented x3 Neck Neck: Yes full ROM, Yes no lymphadenopathy and Yes supple Thyroid: Thyroid normal Neuro General: patient oriented x3, gait normal, tone normal, moves all extremities and no focal motor deficits Cognition (Neuro): normal cognition Gait exam (Neuro): Normal gait present Psych Appearance: grossly normal Mental Status: mental status grossly normal Speech and movement: Normal speech and movement present Affect: normal affect Attitude: cooperative Thought process: Normal thought process present Assessment and Plan Assessment & Plan (1) Mass of pharynx present on endoscopy: Code(s): J39.2 - Other diseases of pharynx Plan: Referred to Dr. Cannon , waiting for appointment (2) Depression with anxiety: Code(s): F41.8 - Other specified anxiety disorders Plan: Continue with sertraline 150 mg once a day, quetiapine 100 mg at bedtime and lorazepam to take only as needed for acute attacks of anxiety. (3) Primary insomnia: Code(s): F51.01 - Primary insomnia Plan: Doing much better on trazodone at 75 mg at bedtime. Has any adverse effects when taking the medication. Coding Level of Care Code Est Pt Level 4 (47678) Diagnoses Mass of pharynx present on endoscopy J39.2 Depression with anxiety F41.8 Primary insomnia F51.01 Additional Codes LULA-7 Assessment Billing - LULA-7 Assessment Tool: LULA-7 Assessment [id number] ([id number])
[2023-08-02 08:06] VITALS: BP 100/60; PULSE 70; O2SAT 98; BMI 29.3
== END 2023-08-02 09:18 | disposition home or self-care (01) ==
PROVIDERS: PCP Internal Medicine; Visit Provider Internal Medicine
DX: J39.2 Other diseases of pharynx (principal); F41.8 Other specified anxiety disorders; F51.01 Primary insomnia
CPT/HCPCS: 99214

== ENCOUNTER 2023-08-29 08:42 | Outpatient (REF) | payer OTHER, SELFPAY ==
--- NOTE | ~2023-08-29 | MM_ITS ---
EXAMINATION: MM SCREENING DIGITAL BREAST TOMOSYNTHESIS, BILATERAL CLINICAL INFORMATION: Screening. Asymptomatic. COMPARISON: Mammography: 09/24/2022, 09/07/2018, 07/18/2017, 05/23/2016. Ultrasound right breast 07/12/2022. TECHNIQUE: Digital breast tomosynthesis is performed in both the craniocaudal and mediolateral oblique views along with computer-aided detection (CAD). Synthesized 2D images are generated from the tomosynthesis. An additional full-field left CC view is submitted. FINDINGS: There are scattered areas of fibroglandular density (ACR BI-RADS breast composition Category b). Previously seen lymph node in the far posterior medial right breast is no longer present. There are no suspicious masses, suspicious grouped calcifications, or areas of architectural distortion in either breast. The parenchymal pattern is stable from prior exams. No suspicious skin or axillary abnormalities. MM/MM tomosynthesis screening BI IMPRESSION: No mammographic evidence of malignancy. No significant change. ASSESSMENT: BI-RADS BI-RADS 1 - Negative RECOMMENDATION: Routine annual mammography screening. 1 year F/U This examination should not preclude the clinical evaluation of a suspicious palpable abnormality. This patient's information was entered into a reminder system with a target due date for their next mammogram.
== END 2023-08-29 08:43 | disposition home or self-care (01) ==
LOC: HO.MAMMO 08:42
PROVIDERS: PCP Internal Medicine; Visit Provider Internal Medicine
DX: Z12.31 Encounter for screening mammogram for malignant neoplasm of breast (principal)
CPT/HCPCS: 77063; 77067

== ENCOUNTER → 2023-08-29 08:45 | Outpatient (BNV) | payer OTHER, SELFPAY | PROVIDERS: PCP Internal Medicine; Visit Provider Radiology Diagnostic Radiology | DX: Z12.31 Encounter for screening mammogram for malignant neoplasm of breast (principal) | CPT/HCPCS: 77063; 77067 ==

== ENCOUNTER 2023-10-30 13:13 | Outpatient (AMB) | payer OTHER, SELFPAY ==
--- NOTE | 2023-10-30 13:33 | A.OFFPC_ITS ---
Vital Signs 10/30/23 13:34 Height 5 ft 5 in Weight 176 lb BMI 29.3 BP 100/70 Blood Pressure Location Rt brachial Position Sitting Pulse 68 Pulse Source Pulse Oximeter Pulse Oximetry (%) 97 Oxygen Delivery Method Room Air Intake Visit Reasons: Vertigo Intake Note: Pt is here today c/o vertigo Allergies vaccine adjuvant system, AS01B lipo [Shingrix (PF)] Allergy (Unknown, Verified 10/30/23 13:49) rash varicella-zoster virus glycoprotein [Shingrix (PF)] Allergy (Unknown, Verified 10/30/23 13:49) rash Medication List - Last Reconciled 10/30/23 by Joelle Chaudhry MD albuterol sulfate 90 mcg/actuation 2 inhalations inhalation Q4-6H PRN amlodipine 10 mg (2 x 5 mg) PO DAILY 90 days atorvastatin 20 mg PO DAILY calcium carb,lactat-vitamin D3 200 mg-6.25 mcg (250 unit) 2 tabs PO QAM cholecalciferol (vitamin D3) 25 mcg PO DAILY fluticasone propionate 110 mcg/actuation (Flovent HFA) 2 puffs inhalation Q12H lansoprazole 30 mg PO DAILY lisinopril 10 mg PO DAILY lorazepam 0.5 mg PO BEDTIME PRN quetiapine 100 mg PO BEDTIME sertraline 150 mg (1.5 x 100 mg) PO DAILY trazodone 75 mg (1.5 x 50 mg) PO BEDTIME PRN Tobacco use date assessed: 10/30/23 Dental Screening Dental Screen Date: 10/30/23 Did you have a dental visit in the last 12 months?: Yes Did you have a dental problem in the last 6 months where you did not have access to dental care?: Yes Was dental information given to patient?: Patient has dentist HPI Vertigo HPI Details 63-year-old lady here today complaining of intermittent episodes of sudden onset of lightheadedness described as a spinning sensation when she changes position. This just started about 5 days ago, no history of any trauma no strenuous exertion, no recent illness. Patient states that it seems to be getting better but is still present. Usually occurs whenever she would get up from a bending position and or turning her head to decide. Has had similar episodes in the past. Some nausea accompanying symptoms but no vomiting, no chest pain, no shortness of breath headache reported. 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 Essential hypertension Primary insomnia Dyslipidemia Surgical History History of oral surgery History of appendectomy Amblyopia History of total hysterectomy with bilateral salpingo-oophorectomy (BSO) History of hemorrhoidectomy Family History Father Prostate cancer Hypertension Mother Colon cancer Vasculitis Mental health disorder Brother Colon cancer Sister Endometrial cancer Maternal Grandmother Colon cancer Social History Housing: Apartment Alcohol intake: current Patient Tobacco Use Status: Former Tobacco user e-Cigarette/Vaping Use: Never Used service: No Current occupational status: employed Cognitive needs: No Hearing needs: No Vision needs: Yes Questionnaire Thrive Questionnaire Date Thrive assessed: 08/02/23 LULA-7 AMB Questionnaire LULA-7 Date LULA - 7 assessed: 08/02/23 Source: Developed by Drs. Manuel Vale, Eneida Hernandez, Sancho Magaña and colleagues, with an educational hamzah from [employer]. Review of Systems Const All systems reviewed & are unremarkable except as noted in HPI and below Physical exam (Primary Care) Vital Signs: Last Vital Signs Pulse 68 10/30/23 13:34 BP 100/70 10/30/23 13:34 Pulse Ox 97 10/30/23 13:34 Oxygen Delivery Method Room Air 10/30/23 13:34 BMI result Body Mass Index 29.3 Tobacco/Smoking Status: Tobacco use Status Tobacco use date assessed 10/30/23 10/30/23 13:37 Patient Tobacco Use Status Former Tobacco user 10/30/23 13:37 e-Cigarette/Vaping Use Never Used 10/30/23 13:37 Thrive Assessment: Date of Thrive Assessment Date Thrive assessed 08/02/23 10/30/23 13:37 Const Orientation/consciousness: patient oriented x3 HENMT Head: Yes normocephalic Ears: hearing grossly normal bilaterally, external ears normal, TM's normal bilaterally and EAC's normal General nose exam: Normal external nose present Face and sinus: Yes face symmetric Mouth: Normal oral and palatal mucosa present, oropharynx normal and moist mucous membranes Eyes Other: No nystagmus General: appearance normal, both eyes and all related structures Neck Other: Supple with no lymphadenopathy, thyroid gland nonpalpable, no carotid bruit Resp Auscultation: clear to auscultation bilaterally Cardio Other: S1-S2 present regular rate and rhythm Neuro General: patient oriented x3, gait normal, tone normal, moves all extremities and no focal motor deficits Assessment and Plan Assessment & Plan (1) Benign paroxysmal positional vertigo: Code(s): H81.10 - Benign paroxysmal vertigo, unspecified ear Plan: Referred to vestibular rehab and physical therapy department for further evaluation and management of possible vertigo Orders: Orders PT Evaluation and Treatment 10/30/23 H81.10 - Benign paroxysmal vertigo, unspecified ear Medications: Refilled trazodone 75 mg (1.5 x 50 mg) PO BEDTIME PRN 45 tabs 1RF sleep/insomnia/ anxiety Coding Level of Care Code Est Pt Level 3 (94436) Diagnoses Benign paroxysmal positional vertigo H81.10
[2023-10-30 13:34] VITALS: BP 100/70; PULSE 68; O2SAT 97; BMI 29.3
== END 2023-10-30 14:16 | disposition home or self-care (01) ==
PROVIDERS: PCP Internal Medicine; Visit Provider Internal Medicine
DX: H81.10 Benign paroxysmal vertigo, unspecified ear (principal)
CPT/HCPCS: 99213

== ENCOUNTER 2023-11-06 13:00 | Outpatient (RCR) | payer OTHER, SELFPAY ==
[2023-11-03 06:55] VITALS: BP 106/72
--- NOTE | 2023-11-03 07:49 | MHC.PT.EP ---
[facility] [address] Office [place] Office [place] Office [address] Enriqueta Robertson [address] [phone] F: [phone] F: [phone] F: [phone] F: [phone] Physical Therapy Plan of Care Date of Evaluation: Date of Surgery: Diagnosis: BPPV Assessment: 63 y/o female referred to PT with BPPV. Describes dizziness like my mind is scrambled, that lasts a few seconds with rolling in bed, getting up from bed and moving head quickly. Examination shows normal oculomotor testing, negative VBI, mildly limited cervical ROM, and (+) for L PC BPPV. Performed Darryl and upon re-test she was negative for nystagmus. Performed precautionary roll and she did report slight dizziness during roll, therefore performed another Darryl Maneuver. Will assess horizontal canals next visit. Frequency and Duration: The patient will be seen 2x/week for 4 weeks Short Term Goals: 2 weeks I with HEP Intermediate Goals: 4 weeks Tolerate position changes without complaints vertigo to improve safety and return to pre-onset level Pt to be able to functionally move in all planes without provocation of dizziness and return to PLOF in 4 weeks Pt to be educated on sx and indications to return to therapy when needed in 4 weeks Treatment Plan: Modalities to reduce pain, spasms and effusion. Manual therapy to restore motion and function. Therapeutic exercise to improve strength and flexibility. Neuromuscular re-education for posture and balance. Therapeutic activities to return to functional activities of daily living. Electronically signed by: Minnie Coburn PT Please sign and return to therapist. Thank you for your referral.
--- NOTE | 2024-01-02 08:18 | MHC.PT.DC ---
[facility] [place] Office [place] Office [place] Office [address] Enriqueta Robertson [address] [phone] F: [phone] F: [phone] F: [phone] F: [phone] Physical Therapy Discharge Report Diagnosis: BPPV Date of Surgery: Date of Evaluation: 11/03/23 Date of Discharge: 01/02/24 Treatments to Date: 2 Cancellations to Date: 0 No Shows to Date: 0 Discharge Status: Achieved Goals Improved Function Discharge Summary: Pt was treated for L posterior canal BPPV and performed 2 petra maneuvers. Upon re-testing, she was negative for nystagmus and sx. Balance was WNL. At this time, she has met all goals and is d/c from PT. Electronically signed by: Minnie Coburn PT Please sign and return to therapist. Thank you for your referral.
== END 2024-01-02 08:18 | disposition home or self-care (01) ==
LOC: HO.PTCHIC 13:00
PROVIDERS: PCP Internal Medicine; Visit Provider Internal Medicine
DX: H81.10 Benign paroxysmal vertigo, unspecified ear (principal)
CPT/HCPCS: 95992; 97112; 97161

== ENCOUNTER 2023-11-24 08:55 | Outpatient (AMB) | payer OTHER, SELFPAY ==
--- NOTE | 2023-11-24 08:56 | AM.OFFWIN_ITS ---
Intake Vital Signs 11/24/23 08:57 Height 5 ft 5 in Weight 179 lb BMI 29.8 BP 98/60 Blood Pressure Location Rt brachial Position Sitting Pulse 86 Pulse Source Pulse Oximeter Temp 98.6 F Temp Source Oral Pulse Oximetry (%) 94 Oxygen Delivery Method Room Air Intake Visit Reasons: EP Fever, sore throat Intake Note: pt c/o sore throat and fever. Started Monday afternoon Patient Tobacco Use Status: Former Tobacco user Allergies vaccine adjuvant system, AS01B lipo [Shingrix (PF)] Allergy (Unknown, Verified 11/24/23 09:06) rash varicella-zoster virus glycoprotein [Shingrix (PF)] Allergy (Unknown, Verified 11/24/23 09:06) rash Do you need a note to return to daycare/school/sports/work: No HPI HPI Comments History of Present Illness Details 63 y/o female patient who [facility] with c/o sore- throat and Fevers since Monday. She has been taking Acetaminophen and Ibuprofen with some good relief. 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 Depression with anxiety Essential hypertension Primary insomnia Dyslipidemia Surgical History History of oral surgery History of appendectomy Amblyopia History of total hysterectomy with bilateral salpingo-oophorectomy (BSO) History of hemorrhoidectomy Family History Father Prostate cancer Hypertension Mother Colon cancer Vasculitis Mental health disorder Brother Colon cancer Sister Endometrial cancer Maternal Grandmother Colon cancer Social History Housing: Apartment Alcohol intake: current Patient Tobacco Use Status: Former Tobacco user e-Cigarette/Vaping Use: Never Used service: No Current occupational status: employed Cognitive needs: No Hearing needs: No Vision needs: Yes Review of Systems Const All systems reviewed & are unremarkable except as noted in HPI and below Physical Exam Vital Signs: Last Vital Signs Temp 98.6 F 11/24/23 08:57 Pulse 86 11/24/23 08:57 BP 98/60 11/24/23 08:57 Pulse Ox 94 11/24/23 08:57 Oxygen Delivery Method Room Air 11/24/23 08:57 BMI result Body Mass Index 29.8 Const General: comfortable and no acute distress Orientation/consciousness: patient oriented x3 HEENT Head: Yes normocephalic Ears: external ears normal and TM's normal bilaterally General nose exam: Normal nasal mucous membranes and turbinates present Face and sinus: Yes sinuses nontender Mouth: Abnormal oral and palatal mucosa present erythematous Throat: Yes abnormal tonsil (Enlarged Tonsils +3) and Yes postnasal drainage Resp Effort & Inspection: normal respiratory effort, able to speak in complete sentences and no cough Auscultation: clear to auscultation bilaterally, no crackles, no rales, no rhonchi and no wheezes Cardio Heart sounds: S1 normal heart sound present and S2 normal heart sound present Neuro General: patient oriented x3, gait normal and moves all extremities Psych Speech and movement: Normal speech and movement present Results AMB Rapid Strep AMB Rapid Strep Negative Last Edit by Stefan Alford CMA on 11/24/23 09:17 Results Reviewed Results Reviewed: Laboratory Last Values Strep Scn Rapid Clinic Negative 11/24/23 09:16 Assessment & Plan Assessment & Plan (1) Acute pharyngitis: Code(s): J02.9 - Acute pharyngitis, unspecified Qualifiers: Pharyngitis/tonsillitis etiology: unspecified etiology Qualified Code(s): J02.9 - Acute pharyngitis, unspecified Plan: OTC Sore-throat remedies Rest and hydrate well with warm fluids and honey Acetaminophen and Ibuprofen for pain relief Ordered PCN x 10 days Rapid Strep Negative Orders: Orders AMB Rapid Strep Screen Today Z13.9 - Encounter for screening, unspecified Medications: New penicillin V potassium 500 mg PO BID 10 days 20 tabs 0RF J02.9 - Acute pharyngitis, unspecified Coding Level of Care Code Est Pt Level 3 (11586) Diagnoses Acute pharyngitis, unspecified etiology J02.9 Pharyngitis/tonsillitis etiology: unspecified etiology Time Spent (min) 15
[2023-11-24 08:57] VITALS: BP 98/60; PULSE 86; TEMP 37; O2SAT 94; BMI 29.8
== END 2023-11-24 09:37 | disposition home or self-care (01) ==
PROVIDERS: PCP Internal Medicine; Visit Provider Nurse Practitioner Family
DX: J02.9 Acute pharyngitis, unspecified (principal)
CPT/HCPCS: 87880; 99213

== ENCOUNTER 2023-11-30 08:10 | Outpatient (REF) | payer OTHER, SELFPAY ==
[2023-11-30 10:44] LABS: Estimated Average Glucose 111 mg/dL; Hemoglobin A1c % 5.5 % (<6.0)
[2023-11-30 10:51] LABS: Alanine Aminotransferase 31 U/L (0-31); Anion Gap 11 (12-20); Aspartate Amino Transferase 34 U/L (5-31); Blood Urea Nitrogen 13 mg/dL (9-16); Calcium 10.1 mg/dL (8.4-10.2); Carbon Dioxide 28 mmol/L (22-29); Chloride 108 mmol/L (96-108); Cholesterol 134 mg/dL (<200); Estimated Glomerular Filt Rate > 60; Glucose Fasting 103 mg/dL (60-99); HDL Cholesterol 28 mg/dL (>40); LDL Cholesterol Calculated 75 mg/dL (<100); Potassium 4.2 mmol/L (3.3-5.1); Sodium 143 mmol/L (135-145); Triglycerides 155 mg/dL (<150)
[2023-11-30 10:56] LABS: Vitamin D 25-OH Total 60.8 ng/mL (>30)
== END 2023-11-30 08:11 | disposition home or self-care (01) ==
LOC: HO.HMGCLDS 08:10
PROVIDERS: PCP Internal Medicine; Visit Provider Internal Medicine
DX: I10 Essential (primary) hypertension (principal); E78.5 Hyperlipidemia, unspecified; F41.8 Other specified anxiety disorders; J45.20 Mild intermittent asthma, uncomplicated; R73.01 Impaired fasting glucose; F51.01 Primary insomnia; Z78.0 Asymptomatic menopausal state
CPT/HCPCS: 36415; 80048; 80061; 82306; 83036; 84450; 84460

== ENCOUNTER 2023-11-30 08:37 | Outpatient (AMB) | payer OTHER, SELFPAY ==
[2023-11-30 08:42] VITALS: BP 112/76; PULSE 77; O2SAT 95; BMI 29.5
--- NOTE | 2023-11-30 08:42 | A.OFFPC_ITS ---
Vital Signs 11/30/23 08:42 Height 5 ft 5 in Weight 177 lb 6 oz BMI 29.5 BP 112/76 Blood Pressure Location Lt brachial Position Sitting Pulse 77 Pulse Source Pulse Oximeter Pulse Oximetry (%) 95 Oxygen Delivery Method Room Air Intake Visit Reasons: PE Intake Note: Patient is here today for her annual physical No pap reported Last mammogram 08/29/23 Last colonoscopy 05/28/23 Immunizations are up to date. Allergies vaccine adjuvant system, AS01B lipo [Shingrix (PF)] Allergy (Unknown, Verified 11/30/23 08:54) rash varicella-zoster virus glycoprotein [Shingrix (PF)] Allergy (Unknown, Verified 11/30/23 08:54) rash Medication List - Last Reconciled 11/30/23 by Joelle Chaudhry MD albuterol sulfate 90 mcg/actuation 2 inhalations inhalation Q4-6H PRN amlodipine 10 mg (2 x 5 mg) PO DAILY 90 days atorvastatin 20 mg PO DAILY calcium carb,lactat-vitamin D3 200 mg-6.25 mcg (250 unit) 2 tabs PO QAM cholecalciferol (vitamin D3) 25 mcg PO DAILY fluticasone propionate 110 mcg/actuation (Flovent HFA) 2 puffs inhalation Q12H lansoprazole 30 mg PO DAILY lisinopril 10 mg PO DAILY lorazepam 0.5 mg PO BEDTIME PRN penicillin V potassium 500 mg PO BID 10 days quetiapine 100 mg PO BEDTIME sertraline 150 mg (1.5 x 100 mg) PO DAILY trazodone 75 mg (1.5 x 50 mg) PO BEDTIME PRN Tobacco use date assessed: 11/30/23 Dental Screening Dental Screen Date: 11/30/23 Did you have a dental visit in the last 12 months?: Yes Did you have a dental problem in the last 6 months where you did not have access to dental care?: No Was dental information given to patient?: Patient has dentist HPI PE HPI Details 63-year-old lady here today for physical exam. She is currently up-to-date with her screening mammogram, last done earlier this year, no longer gets Pap smears as she has had a TAHBSO as a prophylactic for cancer, up-to-date with her screening colonoscopy done by Dr. Sanchez earlier this year as well with removal of 2 hyperplastic polyps. She has hypertension currently on lisinopril 10 mg daily and amlodipine 10 mg daily, with blood pressure stable and controlled. 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 Has mild intermittent asthma currently on albuterol inhaler as needed for episodes of bronchospasm and wheezing. 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 Depression with anxiety Essential hypertension Primary insomnia Dyslipidemia Surgical History History of oral surgery History of appendectomy Amblyopia History of total hysterectomy with bilateral salpingo-oophorectomy (BSO) History of hemorrhoidectomy Family History Father Prostate cancer Hypertension Mother Colon cancer Vasculitis Mental health disorder Brother Colon cancer Sister Endometrial cancer Maternal Grandmother Colon cancer Social History Housing: Apartment Alcohol intake: current Patient Tobacco Use Status: Former Tobacco user e-Cigarette/Vaping Use: Never Used service: No Current occupational status: employed Cognitive needs: No Hearing needs: No Vision needs: Yes Female Reproductive History Menstrual Menopause type: surgical Questionnaire PHQ-9 Over the last 2 weeks, how often have you been bothered by any of the following problems? 1. Little interest or pleasure in doing things: several days 2. Feeling down, depressed, or hopeless: not at all 3. Trouble falling or staying asleep, or sleeping too much: not at all 4. Feeling tired or having little energy: several days 5. Poor appetite or overeating: not at all 6. Feeling bad about yourself - or that you are a failure or have let yourself or your family down: not at all 7. Trouble concentrating on things, such as reading the newspaper or watching television: not at all 8. Moving or speaking so slowly that other people could have noticed. Or the opposite - being so fidgety or restless that you have been moving around a lot more than usual: not at all 9. Thoughts that you would be better off or of hurting yourself in some way: not at all Total score: 2 Depression Screening Interpretation: Negative Depression Screening Done: Yes 76947 - PHQ-9 Billing: Yes Source: Developed by Drs. Manuel Vale, Eneida Hernandez, Sancoh Maagña and colleagues, with an educational hamzah from [employer]. Thrive Questionnaire Date Thrive assessed: 08/02/23 I am a: Patient What is your living situation today?: I have a steady place to live Within the past 12 months, did the food you bought not last and you didn't have the money to get more?: I choose not to answer this question Within the past 12 months, did you worry whether your food would run out before you got money to buy more?: Never true Do you have trouble paying for medicines?: No Do you have trouble getting transportation to medical appointments?: No Do you have trouble paying your heating and electricity bill?: No Do you have trouble taking care of your child, family member or friend?: I choose not to answer this question Do you have trouble with day-to-day activities such as bathing, preparing meals, shopping, managing finances, etc.?: No Are you currently unemployed and looking for a job?: I choose not to answer this question Are you interested in more education?: No Please select the resources that you would like help with: Housing/Skilled Nursing Currently or been in a relationship where the following occur: I choose not to answer THRIVE Score: 0 AUDIT C Alcohol Use Questionnaire (AUDIT-C) 1. How often do you have a drink containing alcohol?: Monthly or less 2. How many drinks containing alcohol do you have on a typical day when you are drinking?: 1 or 2 3. How often do you have six or more drinks on one occasion?: Never Total Score: 1 Score Reviewed/Action Taken: Yes LULA-7 AMB Questionnaire LULA-7 Date LULA - 7 assessed: 11/30/23 Feeling nervous, anxious, or on edge: 0 = Not at all Not being able to stop or control worryin = Not at all Worrying too much about different things: 0 = Not at all Trouble relaxin = Not at all Being so restless that it is hard to sit still: 0 = Not at all Becoming easily annoyed or irritable: 1 = Several days Feeling afraid as if something awful might happen: 0 = Not at all Total LULA-7 score (0-4 normal; 5-9 mild; 10-14 moderate; 15-21 severe): 1 Source: Developed by Drs. Manuel Vale, Eneida Hernandez, Sancho Magaña and colleagues, with an educational hamzah from [employer]. LULA-7 Assessment Billing LULA-7 Assessment Tool: LULA-7 Assessment 68825 Review of Systems Const Denies lethargy, Denies malaise and Denies snoring Eyes Reports no additional complaints ENT Reports no additional complaints Card Reports no additional complaints Resp Reports no additional complaints and Denies snoring GI Reports no additional complaints Reports no additional complaints Musc Reports stiffness Skin/Breast Denies breast swelling, Denies breast pain, Denies breast mass, Denies dry skin and Denies rash Neuro Reports no additional complaints Psych Reports as per HPI Endo Reports no additional complaints Gary/Lymph Reports no additional complaints Aller/Immun Reports no additional complaints Physical exam (Primary Care) Vital Signs: Last Vital Signs Pulse 77 11/30/23 08:42 BP 112/76 11/30/23 08:42 Pulse Ox 95 11/30/23 08:42 Oxygen Delivery Method Room Air 11/30/23 08:42 BMI result Body Mass Index 29.5 Tobacco/Smoking Status: Tobacco use Status Tobacco use date assessed 11/30/23 11/30/23 08:47 Patient Tobacco Use Status Former Tobacco user 11/30/23 08:44 e-Cigarette/Vaping Use Never Used 11/30/23 08:44 PHQ-9: PHQ-9 Score PHQ-9: Total score 2 11/30/23 08:47 Depression Screening Interpretation: Negative Thrive Assessment: Date of Thrive Assessment Date Thrive assessed 08/02/23 11/30/23 08:44 Currently or been in a relationship where the following occur: I choose not to answer Const Orientation/consciousness: patient oriented x3 HENMT Head: Yes normocephalic Ears: hearing grossly normal bilaterally, external ears normal, TM's normal bilaterally and EAC's normal General nose exam: Normal external nose present Face and sinus: Yes face symmetric Mouth: Normal oral and palatal mucosa present, oropharynx normal and moist mucous membranes Eyes General: appearance normal, both eyes and all related structures Neck Other: Supple with no lymphadenopathy, thyroid gland nonpalpable, no carotid bruit Chest Breast/axilla palpation: normal palpation of the breasts Resp Auscultation: clear to auscultation bilaterally Cardio Other: S1-S2 present regular rate and rhythm Bruits: no abdominal aortic bruits GI Inspection: Yes normal to inspection Palpation (GI): No Abdominal aortic bruit present, Soft to palpation, nontender, no guarding and no masses General: Yes no CVA tenderness and Yes deferred (hx of elena-bso) Back/Spine/Pelvis Back: no CVA tenderness and No back tenderness Skin General skin exam: no rashes or lesions noted Neuro General: patient oriented x3, gait normal, tone normal, moves all extremities and no focal motor deficits Extrem Other: Crepitus both knees General: Yes full ROM, Yes no joint enlargement, Yes no clubbing, cyanosis or edema and Yes no calf tenderness Psych Appearance: grossly normal and well kempt Mental Status: mental status grossly normal Speech and movement: Normal speech and movement present Affect: normal affect Attitude: cooperative Thought process: Normal thought process present Thought content: Normal thought content present Assessment and Plan Assessment & Plan (1) Annual visit for general adult medical examination with abnormal findings: Code(s): Z00.01 - Encounter for general adult medical examination with abnormal findings Plan: Fasting labs were already drawn this morning with results still pending. Recommended dental visit every 6 months and regular eye exams, at least every 2 years. Take adequate calcium in diet and vitamin-D 3 at 2000 IU per cap once a day, in addition to weight-bearing exercises to help maintain good muscle tone and weight control. Instructed to do self-breast exam, and continue yearly mammogram, currently up-to-date, no longer gets cervical cancer screenings. Up-to-date with her screening colonoscopy done yearly by Dr. Maza up-to-date with all her immunizations, recommended to get RSV vaccine (2) GERD (gastroesophageal reflux disease): Code(s): K21.9 - Gastro-esophageal reflux disease without esophagitis Plan: Followed by Dr. Sanchez, continued on lansoprazole (3) Impaired fasting glucose: Code(s): R73.01 - Impaired fasting glucose Plan: Fasting blood sugar was done, with results still pending, reinforced importance of following healthy diet and getting regular exercise to prevent progression to diabetes mellitus (4) Mild intermittent asthma: Code(s): J45.20 - Mild intermittent asthma, uncomplicated Qualifiers: Asthma complication type: uncomplicated Qualified Code(s): J45.20 - Mild intermittent asthma, uncomplicated Plan: Rarely using her albuterol inhaler, has Flovent inhaler but seldom uses it. 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 Maza (6) Depression with anxiety: Code(s): F41.8 - Other specified anxiety disorders Plan: Controlled and stable on sertraline, quetiapine and takes trazodone as needed for insomnia which has been held (7) Essential hypertension: Code(s): I10 - Essential (primary) hypertension Plan: Blood pressure at goal of less than 130/80. Continue with current medication. Reinforced importance of following a low sodium diet, getting regular exercise, and lowering stress levels. (8) Primary insomnia: Code(s): F51.01 - Primary insomnia Plan: Takes trazodone 50 mg at bedtime which has been helping (9) Dyslipidemia: Code(s): E78.5 - Hyperlipidemia, unspecified Plan: Fasting lipid panel already done with results still pending continue on atorvastatin 20 mg daily Coding Level of Care Code Est Pt Prev Care 40-64y(95097) Diagnoses Annual visit for general adult medical examination with abnormal findings Z00.01 GERD (gastroesophageal reflux disease) K21.9 Impaired fasting glucose R73.01 Mild intermittent asthma without complication J45.20 Asthma complication type: uncomplicated 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
== END 2023-11-30 09:09 | disposition home or self-care (01) ==
PROVIDERS: PCP Internal Medicine; Visit Provider Internal Medicine
DX: Z00.00 Encounter for general adult medical examination without abnormal findings (principal); K21.9 Gastro-esophageal reflux disease without esophagitis; R73.01 Impaired fasting glucose; J45.20 Mild intermittent asthma, uncomplicated; Z14.8 Genetic carrier of other disease; F41.8 Other specified anxiety disorders; I10 Essential (primary) hypertension; F51.01 Primary insomnia; E78.5 Hyperlipidemia, unspecified
CPT/HCPCS: 99396

== ENCOUNTER 2024-06-03 10:41 | Outpatient (REF) | payer OTHER, SELFPAY ==
--- NOTE | ~2024-06-03 | XR_ITS ---
EXAMINATION: XR SHOULDER 2 OR MORE VIEWS LEFT HISTORY: S43.499A - Other sprain of unspecified shoulder joint, initial encounter COMPARISON: There are no prior studies available for comparison. FINDINGS: Three views of the left shoulder are submitted. Osseous mineralization is normal. There is no fracture or dislocation. The glenohumeral joint is maintained. There is mild narrowing of the AC joint. The soft tissues are unremarkable. XR/XR shoulder LT min 2V IMPRESSION: Mild narrowing of the AC joint. Electronically signed by: Manuel Jacinto MD 06/03/2024 01:56 PM EST
--- OUTSIDE RECORDS SUMMARY | 2024-06-03 12:41 | XMS_ITS | Clinical Summary ---
Author Organization [facility] ity Address [address] [place] [address] Care Team Providers Care Chief [place] Division Name Role Phone Unavailable Primary Care Provider Unavailabl e Medications lansoprazole (PREVACID) [address] Harley ons:GERD (gastroesophage al reflux disease) Take 1 capsule (30 mg total) by mouth 1 (one) time each day. Do not crush or chew. 90 each 1 04/08/2024 5 Active Encounters Date Type Department Care Team Description 04/05/2024 Telephone Gastroenterology - [address] [place] [address] Maggie Santiago MA from Last 3 Months Social History Tobacco Use Types Packs/Day Years Used Date Smoking Tobacco: Never Assessed Comments Unknown Sex and Gender Information Value Date Recorded Sex Assigned at Not on file Legal Sex Female 9:36 AM EST Gender Identity Not on file Sexual Orientation Not on file Plan of Treatment Health Maintenance Due Date Last Done Comments Breast Cancer Screening 1961 DTaP,Tdap,and Td Vaccines (1 - Tdap) 1968 Cervical Cancer Screening: P ap Smear 1982 Pneumococcal Vaccine: 50+ Ye ars (1 of 1 - PCV) 2011 Zoster Vaccines (1 of 2) 2011 Colorectal Cancer Screening: Colonoscopy 03/22/2022 Depression Screening 03/22/2022 HIV Screening 03/22/2022 Hepatitis C Screening 03/22/2022 Social Influencers of Health Screening 03/22/2022 COVID-19 Vaccine (1 - 2023-2 5 season) 2023 Influenza Vaccine (#1) 2023 RSV Immunization Patients 60 + Years Old (1 - 1-dose 75+ series) 2036 HIB Vaccines Aged Out No longer eligi ble based on patient's age to complete this topic HPV Vaccines Aged Out No longer eligi ble based on patient's age to complete this topic Hepatitis A Vaccines Aged Out No long er eligible based on patient's age to complete this topic Hepatitis B Vaccines Aged Out No long er eligible based on patient's age to complete this topic IPV Vaccines Aged Out No longer eligi ble based on patient's age to complete this topic MMR Vaccines Aged Out No longer eligi ble based on patient's age to complete this topic Meningococcal ACWY Vaccine Aged Out N o longer eligible based on patient's age to complete this topic Meningococcal B Vacine Aged Out No lo nger eligible based on patient's age to complete this topic Pneumococcal Vaccine: Pediat rics (0 to 5 Years) and At-Risk Patients (6 to 64 Years) Aged Out No longer eligible b ased on patient's age to complete this topic RSV Immunization Patients Un yuri 20 months Aged Out No longer eligible b ased on patient's age to complete this topic Varicella Vaccines Aged Out No longer eligible based on patient's age to complete this topic
== END 2024-06-03 10:42 | disposition home or self-care (01) ==
LOC: HO.HMGCX 10:41
PROVIDERS: PCP Internal Medicine; Visit Provider Internal Medicine
DX: E78.5 Hyperlipidemia, unspecified (principal); F51.01 Primary insomnia; I10 Essential (primary) hypertension; F41.8 Other specified anxiety disorders; J45.20 Mild intermittent asthma, uncomplicated; J39.2 Other diseases of pharynx; S43.402A Unspecified sprain of left shoulder joint, initial encounter; Z79.899 Other long term (current) drug therapy; X58.XXXA Exposure to other specified factors, initial encounter; Y93.9 Activity, unspecified; Y92.9 Unspecified place or not applicable; Y99.9 Unspecified external cause status
CPT/HCPCS: 73030; 96127

== ENCOUNTER → 2024-06-03 11:22 | Outpatient (AMB) | payer OTHER, SELFPAY ==
[2024-06-03 10:43] VITALS: BP 110/70; PULSE 73; RESP 16; TEMP 36.7; O2SAT 97; BMI 30.9
--- NOTE | 2024-06-03 10:43 | MHC.PC.OV ---
Vital Signs 06/03/24 10:43 Height 5 ft 5 in Weight 186 lb BMI 30.9 BP 110/70 Blood Pressure Location Rt brachial Position Sitting Respiration 16 Pulse 73 Pulse Source Pulse Oximeter Temp 98.1 F Temp Source Oral Pulse Oximetry (%) 97 Oxygen Delivery Method Room Air Intake Visit Reasons: 6 month follow up Intake Note: Pt is here today for her 6mo. Allergies vaccine adjuvant system, AS01B lipo [Shingrix (PF)] Allergy (Unknown, Verified 06/03/24 11:04) rash varicella-zoster virus glycoprotein [Shingrix (PF)] Allergy (Unknown, Verified 06/03/24 11:04) rash Medication List - Last Reconciled 06/03/24 by Joelle Chaudhry MD albuterol sulfate 90 mcg/actuation 2 inhalations inhalation Q4-6H PRN amlodipine 10 mg (2 x 5 mg) PO DAILY 90 days atorvastatin 20 mg PO DAILY calcium carb,lactat-vitamin D3 200 mg-6.25 mcg (250 unit) 2 tabs PO QAM cholecalciferol (vitamin D3) 25 mcg PO DAILY fluticasone propionate 110 mcg/actuation (Flovent HFA) 2 puffs inhalation Q12H lansoprazole 30 mg PO DAILY lisinopril 10 mg PO DAILY lorazepam 0.5 mg PO BEDTIME PRN quetiapine 100 mg PO BEDTIME sertraline 150 mg (1.5 x 100 mg) PO DAILY trazodone 50 mg PO BEDTIME PRN Tobacco use date assessed: 06/03/24 Dental Screening Dental Screen Date: 06/03/24 Did you have a dental visit in the last 12 months?: Yes Did you have a dental problem in the last 6 months where you did not have access to dental care?: No Was dental information given to patient?: Patient has dentist HPI 6 month follow up HPI Details 64-year-old lady with past medical history significant for Villgaomez syndrome, currently gets yearly colonoscopy screening with Dr. Maza, has hypertension, dyslipidemia, gastroesophageal reflux disease, mild intermittent asthma, dyslipidemia with history of depression and anxiety as well as insomnia, here today for follow-up. She states that she has been feeling well, with depression and anxiety currently stable controlled on present treatment. She states that she has decreased her dose of trazodone to just 50 mg at night as needed acute anxiety attacks She has been compliant with her medications but admits to not bring her diet strictly and has not been as active do winter. Blood pressure stable and controlled on present medications. She is overdue to get her fasting labs done. Patient was referred to ENT, Dr. Godoy last July 2023 forA small nodule in posterior pharynx, with unclear etiology, was noted on an upper endoscopy done by Dr. Maza 06/21/2023 evaluation of an incidental finding of a small nodule in posterior pharynx, with unclear etiology, noted on an upper endoscopy done by Dr. Maza 06/21/2023, but patient states that she has not received any appointment for ENT. She called ENT, office and did not get a return call. Complains of acute pain in her left upper back radiating to left posterior shoulder. No history of trauma. She has been applying moist heat to affected area and taking a leave alternating with Tylenol which affords temporary relief. 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 Depression with anxiety Essential hypertension Primary insomnia Dyslipidemia Surgical History History of oral surgery History of appendectomy Amblyopia History of total hysterectomy with bilateral salpingo-oophorectomy (BSO) History of hemorrhoidectomy Family History Father Prostate cancer Hypertension Mother Colon cancer Vasculitis Mental health disorder Brother Colon cancer Sister Endometrial cancer Maternal Grandmother Colon cancer Social History Housing: Apartment Alcohol intake: current Patient Tobacco Use Status: Former Tobacco user e-Cigarette/Vaping Use: Never Used service: No Current occupational status: employed Cognitive needs: No Hearing needs: No Vision needs: Yes Questionnaire PHQ-9 Over the last 2 weeks, how often have you been bothered by any of the following problems? 1. Little interest or pleasure in doing things: several days 2. Feeling down, depressed, or hopeless: not at all 3. Trouble falling or staying asleep, or sleeping too much: not at all 4. Feeling tired or having little energy: several days 5. Poor appetite or overeating: not at all 6. Feeling bad about yourself - or that you are a failure or have let yourself or your family down: not at all 7. Trouble concentrating on things, such as reading the newspaper or watching television: not at all 8. Moving or speaking so slowly that other people could have noticed. Or the opposite - being so fidgety or restless that you have been moving around a lot more than usual: not at all 9. Thoughts that you would be better off or of hurting yourself in some way: not at all Total score: 2 Depression Screening Interpretation: Negative Depression Screening Done: Yes 03855 - PHQ-9 Billing: Yes Source: Developed by Drs. Manuel Vale, Eneida Hernandez, Sancho Magaña and colleagues, with an educational hamzah from [employer]. Thrive Questionnaire Date Thrive assessed: 05/31/24 I am a: Patient What is your living situation today?: I have a steady place to live Within the past 12 months, did the food you bought not last and you didn't have the money to get more?: Never true Within the past 12 months, did you worry whether your food would run out before you got money to buy more?: Never true Do you have trouble paying for medicines?: No Do you have trouble getting transportation to medical appointments?: No Do you have trouble paying your heating and electricity bill?: No Do you have trouble taking care of your child, family member or friend?: No Do you have trouble with day-to-day activities such as bathing, preparing meals, shopping, managing finances, etc.?: No Are you currently unemployed and looking for a job?: No Are you interested in more education?: No Please select the resources that you would like help with: None Currently or been in a relationship where the following occur: No concerns reported THRIVE Score: 0 AUDIT C Alcohol Use Questionnaire (AUDIT-C) 1. How often do you have a drink containing alcohol?: Monthly or less 2. How many drinks containing alcohol do you have on a typical day when you are drinking?: 1 or 2 3. How often do you have six or more drinks on one occasion?: Never Total Score: 1 LULA-7 AMB Questionnaire LULA-7 Date LULA - 7 assessed: 06/03/24 Feeling nervous, anxious, or on edge: 0 = Not at all Not being able to stop or control worryin = Several days Worrying too much about different things: 1 = Several days Trouble relaxin = Not at all Being so restless that it is hard to sit still: 0 = Not at all Becoming easily annoyed or irritable: 0 = Not at all Feeling afraid as if something awful might happen: 0 = Not at all Total LULA-7 score (0-4 normal; 5-9 mild; 10-14 moderate; 15-21 severe): 2 Source: Developed by Drs. Manuel Vale, Eneida Hernandez, Sancho Magaña and colleagues, with an educational hamzah from [employer]. Review of Systems Const Reports no additional complaints Eyes Reports no additional complaints ENT Reports no additional complaints and Denies dysphagia Card Reports no additional complaints Resp Reports no additional complaints GI Reports no additional complaints and Denies dysphagia Reports no additional complaints Musc Reports stiffness Skin/Breast Denies breast swelling, Denies breast pain, Denies breast mass, Denies dry skin and Denies rash Neuro Reports no additional complaints Psych Reports as per HPI Endo Reports no additional complaints Gary/Lymph Reports no additional complaints Aller/Immun Reports no additional complaints Physical exam (Primary Care) Vital Signs: Last Vital Signs Temp 98.1 F 06/03/24 10:43 Pulse 73 06/03/24 10:43 Resp 16 06/03/24 10:43 BP 110/70 06/03/24 10:43 Pulse Ox 97 06/03/24 10:43 Oxygen Delivery Method Room Air 06/03/24 10:43 BMI result Body Mass Index 30.9 Tobacco/Smoking Status: Tobacco use Status Tobacco use date assessed 06/03/24 06/03/24 10:45 Patient Tobacco Use Status Former Tobacco user 06/03/24 10:45 e-Cigarette/Vaping Use Never Used 06/03/24 10:45 PHQ-9: PHQ-9 Score PHQ-9: Total score 2 06/03/24 11:04 Depression Screening Interpretation: Negative Thrive Assessment: Date of Thrive Assessment Date Thrive assessed 05/31/24 06/03/24 10:45 Currently or been in a relationship where the following occur: No concerns reported Const Orientation/consciousness: patient oriented x3 HENMT Head: Yes normocephalic Ears: hearing grossly normal bilaterally and external ears normal General nose exam: Normal external nose present Face and sinus: Yes face symmetric Mouth: Normal oral and palatal mucosa present, oropharynx normal and moist mucous membranes Eyes General: appearance normal, both eyes and all related structures Neck Other: Supple with no lymphadenopathy, thyroid gland nonpalpable, no carotid bruit Chest Breast/axilla palpation: normal palpation of the breasts Resp Auscultation: clear to auscultation bilaterally Cardio Other: S1-S2 present regular rate and rhythm GI Inspection: Yes normal to inspection Palpation (GI): Soft to palpation, nontender, no guarding and no masses Back/Spine/Pelvis Back: No back tenderness Skin General skin exam: no rashes or lesions noted Neuro General: patient oriented x3, gait normal, tone normal, moves all extremities and no focal motor deficits Extrem General: Yes full ROM, Yes no joint enlargement, Yes no clubbing, cyanosis or edema and Yes no calf tenderness Psych Appearance: grossly normal and well kempt Mental Status: mental status grossly normal Speech and movement: Normal speech and movement present Affect: normal affect Attitude: cooperative Thought process: Normal thought process present Thought content: Normal thought content present Coding Level of Care Code Est Pt Level 4 (06077) Complex EM visit Add On G2211 Diagnoses Dyslipidemia E78.5 Primary insomnia F51.01 Essential hypertension I10 Depression with anxiety F41.8 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 Stressed importance of following a low-cholesterol diet and getting regular exercise currently on atorvastatin 20 mg daily (2) Primary insomnia: Code(s): F51.01 - Primary insomnia Category: Medical Plan: Continue with taking trazodone 50 mg at bedtime, and try to decrease it to 25 mg for treatment of insomnia (3) Essential hypertension: Code(s): I10 - Essential (primary) hypertension Category: Medical Plan: Blood pressure at goal of less than 130/80. Continue lisinopril 10 mg daily and amlodipine 10 mg daily. Reinforced importance of following a low sodium diet, getting regular exercise, and lowering stress levels. 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 Maza, gets screening colonoscopies yearly (6) Mild intermittent asthma: Code(s): J45.20 - Mild intermittent asthma, uncomplicated Category: Medical Qualifiers: Asthma complication type: uncomplicated Qualified Code(s): J45.20 - Mild intermittent asthma, uncomplicated Plan: Continue on albuterol inhaler as needed for episodes of bronchospasm and wheezing. Up-to-date with her pneumonia vaccine (7) Mass of pharynx present on endoscopy: Code(s): J39.2 - Other diseases of pharynx Category: Medical Plan: ENT consult again ordered, referred to ENT a [facility] for further evaluation management. Advise patient to call us back if no response from them after 10 days, (8) Sprain of posterior shoulder joint: Code(s): S43.499A - Other sprain of unspecified shoulder joint, initial encounter Plan: X-ray of left shoulder joint ordered, referred for physical therapy, may alternate taking Aleve and Tylenol every 8 hours as needed for pain, may massage absorbine alicia to affected area in left posterior shoulder as needed Orders: Orders Lipid Panel 06/03/24 E78.5 - Hyperlipidemia, unspecified, F41.8 - Other specified anxiety disorders, F51.01 - Primary insomnia, I10 - Essential (primary) hypertension, J45.20 - Mild intermittent asthma, uncomplicated, R73.01 - Impaired fasting glucose, Z14.8 - Genetic carrier of other disease Alanine Aminotransferase 06/03/24 E78.5 - Hyperlipidemia, unspecified, F41.8 - Other specified anxiety disorders, F51.01 - Primary insomnia, I10 - Essential (primary) hypertension, J45.20 - Mild intermittent asthma, uncomplicated, R73.01 - Impaired fasting glucose, Z14.8 - Genetic carrier of other disease XR shoulder LT min 2V 06/03/24 S43.499A - Other sprain of unspecified shoulder joint, initial encounter PT Evaluation and Treatment 06/03/24 S43.499A - Other sprain of unspecified shoulder joint, initial encounter Basic Metabolic Panel Fasting 06/03/24 E78.5 - Hyperlipidemia, unspecified, F41.8 - Other specified anxiety disorders, F51.01 - Primary insomnia, I10 - Essential (primary) hypertension, J45.20 - Mild intermittent asthma, uncomplicated, R73.01 - Impaired fasting glucose, Z14.8 - Genetic carrier of other disease Aspartate Amino Transferase 06/03/24 E78.5 - Hyperlipidemia, unspecified, F41.8 - Other specified anxiety disorders, F51.01 - Primary insomnia, I10 - Essential (primary) hypertension, J45.20 - Mild intermittent asthma, uncomplicated, R73.01 - Impaired fasting glucose, Z14.8 - Genetic carrier of other disease Vitamin D 25-OH Total 06/03/24 E78.5 - Hyperlipidemia, unspecified, F41.8 - Other specified anxiety disorders, F51.01 - Primary insomnia, I10 - Essential (primary) hypertension, J45.20 - Mild intermittent asthma, uncomplicated, R73.01 - Impaired fasting glucose, Z14.8 - Genetic carrier of other disease Referrals Ear/Nose/Throat Referral J39.2 - Other diseases of pharynx Medications: Changed From trazodone 75 mg (1.5 x 50 mg) PO BEDTIME PRN 45 tabs 1RF sleep/insomnia/ anxiety To trazodone 50 mg PO BEDTIME PRN sleep/insomnia/ anxiety
== END | disposition home or self-care (01) ==
PROVIDERS: PCP Internal Medicine; Visit Provider Internal Medicine
DX: E78.5 Hyperlipidemia, unspecified (principal); F51.01 Primary insomnia; I10 Essential (primary) hypertension; F41.8 Other specified anxiety disorders; Z14.8 Genetic carrier of other disease; J45.20 Mild intermittent asthma, uncomplicated; J39.2 Other diseases of pharynx; S43.499A Other sprain of unspecified shoulder joint, initial encounter

== ENCOUNTER → 2024-06-03 11:28 | Outpatient (BNV) | payer OTHER, SELFPAY | PROVIDERS: PCP Internal Medicine; Visit Provider Radiology Diagnostic Radiology | DX: S43.492A Other sprain of left shoulder joint, initial encounter (principal) | CPT/HCPCS: 73030 ==

== ENCOUNTER 2024-07-31 09:00 | Outpatient (RCR) | payer OTHER, SELFPAY ==
--- NOTE | 2024-07-23 09:32 | MHC.PT.EP ---
[facility] [place] Office [place] Office [place] Office [address] Enriqueta Robertson [address] [phone] F: [phone] F: [phone] F: [phone] F: [phone] Physical Therapy Plan of Care Date of Evaluation: 07/23/24 Date of Surgery: n/a Diagnosis: L sprain of posterior shoulder joint Assessment: Patient is a 64 year old female presenting to PT with complaints of pain in her L shoulder. Pt reports onset of pain began February 2024 due to falling asleep with her arm over her head. She presents today with impairments in pain, ROM, posture, shoulder strength. Pt's current occupation is none, with baseline physical activities including reaching, lifting, ADLs. Pt expresses meterman goal of reducing pain, and is motivated to work towards this in PT. Clinical presentation today is most consistent with signs and sx associated with L shoulder pain and pt will benefit from skilled PT 2 week x 4 weeks to address the following problems and impairments noted upon evaluation: pain, ROM, posture, shoulder strength. These problems limit the patient with the following functional activities: reaching, lifting, ADLs. The prescribed treatment plan of care is medically necessary. Co-morbidities of anxiety, depression, HTN were identified and taken into considerations of plan of care. Pt was educated on HEP, role of PT, prognosis, POC. Frequency and Duration: The patient will be seen 2 x week x 4 weeks Short Term Goals: Pt will demonstrate symmetrical ROM at the shoulder in 2 weeks. Pt will demonstrate improved L shoulder MMT strength by 1/3 grade in 2 weeks. [employer] Goals: Pt will demonstrate improved SPADI score by 13 points in 4 weeks for improved functional mobility. Pt will demonstrate ability to reach and lift with min to no pain in 4 weeks for return to PLOF. Pt will demonstrate ability to complete all ADLs with min to no pain in 4 weeks for return to PLOF. Treatment Plan: Modalities to reduce pain, spasms and effusion. Manual therapy to restore motion and function. Therapeutic exercise to improve strength and flexibility. Neuromuscular re-education for posture and balance. Therapeutic activities to return to functional activities of daily living. Electronically signed by: Fabiola Wiggins, PT, DPT, ATC Please sign and return to therapist. Thank you for your referral.
--- NOTE | 2024-09-02 06:59 | MHC.PT.DC ---
[facility] [place] Office [place] Office [place] Office [address] [phone] F: [phone] F: [phone] F: [phone] F: [phone] Physical Therapy Discharge Report Diagnosis: L sprain of posterior shoulder joint Date of Surgery: n/a Date of Evaluation: 07/23/24 Date of Discharge: 09/02/24 Treatments to Date: 2 Cancellations to Date: 2 No Shows to Date: 1 Discharge Status: Discharge Summary: Pt has not attended skilled PT in >30 days so therefore to be d/c per policy. Electronically signed by: Fabiola Wiggins, PT, DPT, ATC Please sign and return to therapist. Thank you for your referral.
== END 2024-09-02 06:59 | disposition home or self-care (01) ==
LOC: HO.PTCHIC 09:00
PROVIDERS: PCP Internal Medicine; Visit Provider Internal Medicine
DX: S43.499D Other sprain of unspecified shoulder joint, subsequent encounter (principal); X58.XXXD Exposure to other specified factors, subsequent encounter
CPT/HCPCS: 97110; 97161

== ENCOUNTER 2024-09-03 08:40 | Outpatient (REF) | payer OTHER, SELFPAY ==
--- OUTSIDE RECORDS SUMMARY | 2024-09-03 09:02 | XMS_ITS | Data Portability ---
Author Organization [place] - [facility], Allergy Address [address] [place] [id number] Care Team Providers Care Shipboard Intelligence Analyst Name Role Phone KEVINKat GAVIN Referring Provider Assessment Encounter Date Assessment Date Assessment LastModified by Organization Details LastModified Time 08/26/2024 08/26/2024 Thorough examination of pharynx with fiberoptic examination was benign. Although a lesion, mass was identified last year on upper endoscopy, her examination today no longer has any suspicious findings. Reassurance was given. She may follow-up as needed [email or web address] Not available 08/26/2024 15:05:39 Plan of Treatment Reminders Order Date Submit Date Provider Last Modified By Organization Details Last Modified Time Details Appointments None record ed. Lab None record ed. Referral None record ed. Procedures None record ed. Surgeries None record ed. Imaging None record ed. Medication Orders None record ed. Patient TargetsNo targets recorded. Patient InstructionsNo instructions recorded. Reason for Referral None Reported. Problems Name Problem SNOMED Code Status Onset Date Resolution Date Notes Provider Name and Address Organization Details Recorded Time Mass of pharynx Active 025 DIVYA JULIEN MD [address] [place] [address], [id number] , [place] - [facility] 08/26/2024 15:05:08 Problem Notes None recorded. Procedures Surgical History Date Name Laterality Status Provider Name and Address Organization Details Recorded Time 08/26/2024 FOL_DP completed DIVYA JULIEN MD [address] [place] [address],[address], [phone], [place] - [facility] 08/25/2024 10:29:45 Imaging Results None recorded. Procedure Notes None recorded. Medical Equipment None Reported. Medications Name Sig Start Date Stop Date Status Note LastModified by Organization Details LastModified Time sertraline active Not Available Not Av ailable Not Available atorvastatin active Not Available Not Available Not Available amlodipine active Not Available Not Av ailable Not Available lisinopril active Not Available Not Av ailable Not Available lansoprazole active Not Available Not Available Not Available D3-2000 active Not Available Not Avail able Not Available fluticasone 232 mcg-salmeter ol 14 mcg/actuatio n breath activated powdr Inhale 1 puff twice a day by inhalation route. active Not Available Not Available No t Available Vitals Date Recorded Body height Body mass index (BMI) Body weight Provider Name and Address Organization Details Last Updated DateTime 08/26/2024 165.1 cm 30 kg/m2 50630.63 g SHANICE CHILDERS [place] - [facility] 08/26/2024 14:48:42 Social History None recorded. Functional Status None recorded. Mental Status None recorded. Family History Nothing Reported. Medical History No medical history recorded. Gynecological HistoryNo gynecological history recorded. Obstetrics History GPAL:G 0 P 0 0 0 0 Past Encounters Encounter ID Performer Location Encounter Start Date Encounter Closed Date Diagnosis/Indication Diagnosis SNOMED-CT Code Diagnosis ICD10 Code Diagnosis Note [id number] DIVYA JULIEN MD [facility] [address] [phone] 08/26/2024 14:37:56 08/26/2024 15:05:23 Mass of pharynx [id number] 2108 J39.2 Health Concerns Section Related Observation LastModified by Organization Detai ls LastModified Time None Recorded Concern Status LastModified by Organization Details LastModified Time None Recorded Advance Directives Directive None Recorded Payers Insurance Date Sequence Insurance Name Policy Number Policy Salinas Covered Member ID Salinas Member ID Guarantor Name 08/23/2024 1 [facility] [id number] Hubert Dorman [id number] Pedro Luis Dorman Notes Date Note Type Note Provider Name and Address Organization Details Recorded Time 08/26/2024 text/html right pharynx masstobacco - stopped around 2000no throat pain, no hemoptysisno imagingno prior throat surgerynormal swallow 06/21/23 Link MEJIA noted small nodule right posterior ph[facility] DIVYA JULIEN MD [address] [place] [address], [place], [phone], [place] - [facility] 08/26/2024 15:06:03 OBGyn Episode No OBEpisode recorded.
--- OUTSIDE RECORDS SUMMARY | 2024-09-03 09:02 | XMS_ITS | Clinical Summary ---
Author Organization [facility] ity Address [address] [place] [address] Care Team Providers Care Turning Machine Set Up Operator Name Role Phone Unavailable Primary Care Provider Unavailabl e Medications lansoprazole (PREVACID) [address] Harley ons:GERD (gastroesophage al reflux disease) Take 1 capsule (30 mg total) by mouth 1 (one) time each day. Do not crush or chew. 90 each 1 04/08/2024 Active Social History Tobacco Use Types Packs/Day Years [...] 1961 DTaP,Tdap,and Td Vaccines (1 - Tdap) 1980 Cervical Cancer Screening: P ap Smear 1982 Pneumococcal Vaccine: 50+ Ye ars (1 of 1 - PCV) 2011 Zoster Vaccines (1 of 2) 2011 Colorectal Cancer Screening: Colonoscopy 03/22/2022 Depression Screening 03/22/2022 HIV Screening 03/22/2022 Hepatitis C Screening 03/22/2022 Social Influencers of Health Screening 03/22/2022 COVID-19 Vaccine ( - 2023-2 5 season) 2023 Influenza Vaccine (Season Ended) 2024 RSV Immunization Adult Patie nts (1 - 1-dose 75+ series) 2036 HIB [...] age to complete this topic Meningococcal B Vaccine Aged Out No l onger eligible based on patient's age to complete [...]
== END 2024-09-03 08:41 | disposition home or self-care (01) ==
LOC: HO.MAMMO 08:40
PROVIDERS: PCP Internal Medicine; Visit Provider Internal Medicine
DX: Z12.31 Encounter for screening mammogram for malignant neoplasm of breast (principal)
CPT/HCPCS: 77063; 77067

== ENCOUNTER → 2024-09-03 08:45 | Outpatient (BNV) | payer OTHER, SELFPAY | PROVIDERS: PCP Internal Medicine; Visit Provider Internal Medicine | DX: Z12.31 Encounter for screening mammogram for malignant neoplasm of breast (principal) | CPT/HCPCS: 77063; 77067 ==

== ENCOUNTER 2024-12-30 08:06 | Outpatient (REF) | payer OTHER, SELFPAY ==
--- OUTSIDE RECORDS SUMMARY | 2024-12-30 08:48 | XMS_ITS | Clinical Summary ---
Author Organization [facility] ity Address [address] [place] [address] Care Team Providers Care Transfer Iron Operator Name Role Phone Unavailable Primary Care Provider Unavailabl e Social History Tobacco Use Types Packs/Day Years [...] 2) 2011 Colorectal Cancer Screening: Colonoscopy 03/22/2022 HIV Screening 03/22/2022 Hepatitis C Screening 03/22/2022 Social Influencers of Health Screening 03/22/2022 COVID-19 Vaccine (1 - 2023-2 5 season) 2023 Depression Screening 04/24/2024 Influenza Vaccine (#1) 2024 RSV Immunization Adult Patie nts (1 [...]
[2024-12-30 14:50] LABS: Alanine Aminotransferase 24 U/L (0-31); Anion Gap 14 (12-20); Aspartate Amino Transferase 29 U/L (5-31); Blood Urea Nitrogen 17 mg/dL (9-16); Calcium 9.2 mg/dL (8.4-10.2); Carbon Dioxide 22 mmol/L (22-29); Chloride 111 mmol/L (96-108); Cholesterol 167 mg/dL (<200); Estimated Glomerular Filt Rate > 60; HDL Cholesterol 50 mg/dL (>40); Potassium 4.4 mmol/L (3.3-5.1); Sodium 143 mmol/L (135-145); Triglycerides 83 mg/dL (<150)
== END 2024-12-30 08:07 | disposition home or self-care (01) ==
LOC: HO.HMGCLDS 08:06
PROVIDERS: PCP Internal Medicine; Visit Provider Internal Medicine
DX: I10 Essential (primary) hypertension (principal); F51.01 Primary insomnia; F41.8 Other specified anxiety disorders; J45.20 Mild intermittent asthma, uncomplicated; Z14.8 Genetic carrier of other disease; R73.01 Impaired fasting glucose; E78.5 Hyperlipidemia, unspecified
CPT/HCPCS: 36415; 80048; 80061; 82306; 84450; 84460

== ENCOUNTER 2025-02-19 15:51 | Outpatient (AMB) | payer OTHER, SELFPAY ==
[2025-02-19 16:00] VITALS: BP 122/74; PULSE 70; RESP 16; TEMP 36.9; O2SAT 98; BMI 30.8
--- NOTE | 2025-02-19 16:00 | A.OFFPC_ITS ---
Vital Signs 02/19/25 16:00 Height 5 ft 5 in Weight 185 lb BMI 30.8 BP 122/74 Blood Pressure Location Lt brachial Position Sitting Respiration 16 Pulse 70 Pulse Source Pulse Oximeter Temp 98.4 F Temp Source Oral Pulse Oximetry (%) 98 Oxygen Delivery Method Room Air Intake Visit Reasons: PE Intake Note: Pt is here today for her PE: last mammogram 09/03/24, colonoscopy 06/21/23 Data Entry Processor Required: No Allergies vaccine adjuvant system, AS01B lipo (Shingrix (PF)) Allergy (Unknown, Verified 02/24/25 01:47) rash varicella-zoster virus glycoprotein (Shingrix (PF)) Allergy (Unknown, Verified 02/24/25 01:47) rash Medication List - Last Reconciled 02/24/25 by Joelle Chaudhry MD albuterol sulfate 90 mcg/actuation 2 inhalations inhalation Q4-6H PRN amlodipine 10 mg (2 x 5 mg) PO DAILY atorvastatin 20 mg PO DAILY calcium carb,lactat-vitamin D3 200 mg-6.25 mcg (250 unit) 2 tabs PO QAM cholecalciferol (vitamin D3) 25 mcg PO DAILY fluticasone propionate 110 mcg/actuation (Flovent HFA) 2 puffs inhalation Q12H lansoprazole 30 mg PO DAILY lisinopril 10 mg PO DAILY lorazepam 0.5 mg PO BEDTIME PRN quetiapine 100 mg PO BEDTIME sertraline 150 mg (1.5 x 100 mg) PO DAILY trazodone 75 mg (1.5 x 50 mg) PO BEDTIME PRN Tobacco use date assessed: 02/19/25 Dental Screening Dental Screen Date: 02/19/25 Did you have a dental visit in the last 12 months?: Yes Did you have a dental problem in the last 6 months where you did not have access to dental care?: No Was dental information given to patient?: Patient has dentist HPI PE HPI Details 64-year-old lady with past medical histo ry significant for Villagomez syndrome, currently gets yearly colonoscopy screening with Dr. Maza, has hypertension, dyslipidemia, gastroesophageal reflux disease, mild intermittent asthma, dyslipidemia with history of depression and anxiety as well as insomnia, here today for her physical exam. She is up-to-date with her screening mammogram, done earlier this year with negative findings. Had a screening colonoscopy done by Dr. Jenkins in [facility] last year with removal of 2 hyperplastic polyps. Blood pressure stable and controlled on amlodipine 10 mg daily and lisinopril 10 mg once a day Currently on atorvastatin 10 mg daily for her dyslipidemia. 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 Depression with anxiety Essential hypertension Primary insomnia Dyslipidemia Surgical History History of oral surgery History of appendectomy Amblyopia History of total hysterectomy with bilateral salpingo-oophorectomy (BSO) History of hemorrhoidectomy Family History Father Prostate cancer Hypertension Mother Colon cancer Vasculitis Mental health disorder Brother Colon cancer Sister Endometrial cancer Maternal Grandmother Colon cancer Social History Housing: Apartment Alcohol intake: current Patient Tobacco Use Status: Former Tobacco user e-Cigarette/Vaping Use: Never Used service: No Current occupational status: employed Cognitive needs: No Hearing needs: No Vision needs: Yes Questionnaire PHQ-9 Over the last 2 weeks, how often have you been bothered by any of the following problems? 1. Little interest or pleasure in doing things: not at all 2. Feeling down, depressed, or hopeless: not at all 3. Trouble falling or staying asleep, or sleeping too much: not at all 4. Feeling tired or having little energy: several days 5. Poor appetite or overeating: not at all 6. Feeling bad about yourself - or that you are a failure or have let yourself or your family down: not at all 7. Trouble concentrating on things, such as reading the newspaper or watching television: not at all 8. Moving or speaking so slowly that other people could have noticed. Or the opposite - being so fidgety or restless that you have been moving around a lot more than usual: not at all 9. Thoughts that you would be better off or of hurting yourself in some way: not at all Total score: 1 Depression Screening Interpretation: Positive (Controlled on sertraline quetiapine and lorazepam taken as needed) Depression Screening Follow-up: Existing condition and In treatment Depression Screening Done: Yes Source: Developed by Drs. Manuel Vale, Eneida Hernandez, Sancho Magaña and colleagues, with an educational hamzah from [employer]. Thrive Questionnaire Date Thrive assessed: 05/31/24 I am a: Patient What is your living situation today?: I have a steady place to live Within the past 12 months, did the food you bought not last and you didn't have the money to get more?: Never true Within the past 12 months, did you worry whether your food would run out before you got money to buy more?: Never true Do you have trouble paying for medicines?: No Do you have trouble getting transportation to medical appointments?: No Do you have trouble paying your heating and electricity bill?: No Do you have trouble taking care of your child, family member or friend?: No Do you have trouble with day-to-day activities such as bathing, preparing meals, shopping, managing finances, etc.?: No Are you currently unemployed and looking for a job?: No Are you interested in more education?: No Please select the resources that you would like help with: None Currently or been in a relationship where the following occur: No concerns reported THRIVE Score: 0 AUDIT C Alcohol Use Questionnaire (AUDIT-C) 1. How often do you have a drink containing alcohol?: Monthly or less 2. How many drinks containing alcohol do you have on a typical day when you are drinking?: 1 or 2 3. How often do you have six or more drinks on one occasion?: Never Total Score: 1 LULA-7 AMB Questionnaire LULA-7 Date LULA - 7 assessed: 06/03/24 Source: Developed by Drs. Manuel Vale, Eneida Hernandez, Sancho Magaña and colleagues, with an educational hamzah from [employer]. ACT Questionnaire In the past 4 weeks, how much of the time did your asthma keep you from getting as much done at work, school or at home?: None of the time During the past 4 weeks, how often have you had shortness of breath?: Not at all During the past 4 weeks, how often have you had to use your rescue inhaler or nebulizer medication?: Not at all How would you rate your asthma control during the past 4 weeks?: Well controlled ACT Interpretation: Negative Score: 19 Review of Systems Const Denies lethargy, Denies malaise and Denies snoring Eyes Details: Gets regular eye exam sees certified medicine aide at [facility] Reports no additional complaints ENT Reports no additional complaints Card Reports no additional complaints Resp Reports no additional complaints and Denies snoring GI Reports no additional complaints Reports no additional complaints Musc Reports stiffness Skin/Breast Denies breast swelling, Denies breast pain, Denies breast mass, Denies dry skin and Denies rash Neuro Reports no additional complaints Psych Reports as per HPI Endo Reports no additional complaints Gary/Lymph Reports no additional complaints Aller/Immun Reports no additional complaints Physical exam (Primary Care) Vital Signs: Last Vital Signs Temp 98.4 F 02/19/25 16:00 Pulse 70 02/19/25 16:00 Resp 16 02/19/25 16:00 BP 122/74 02/19/25 16:00 Pulse Ox 98 02/19/25 16:00 Oxygen Delivery Method Room Air 02/19/25 16:00 BMI result Body Mass Index 30.8 Tobacco/Smoking Status: Tobacco use Status Tobacco use date assessed 02/19/25 02/19/25 16:08 Patient Tobacco Use Status Former Tobacco user 02/19/25 16:02 e-Cigarette/Vaping Use Never Used 02/19/25 16:02 Depression Screening Interpretation: Positive (Controlled on sertraline quetiapine and lorazepam taken as needed) Depression Screening Follow-up: Existing condition and In treatment Thrive Assessment: Date of Thrive Assessment Date Thrive assessed 05/31/24 02/19/25 16:02 Currently or been in a relationship where the following occur: No concerns rep orted Advance Care Planning discussion: Completed/Scanned Date of discussion: 02/19/25 Who was present: Patient Forms completed: Health Care Proxy Time spent: 16-45 minutes Actual minutes spent: 1 Const Orientation/consciousness: patient oriented x3 HENMT Head: Yes normocephalic Ears: hearing grossly normal bilaterally and external ears normal General nose exam: Normal external nose present Face and sinus: Yes face symmetric Mouth: Normal oral and palatal mucosa present, oropharynx normal and moist mucous membranes Eyes General: appearance normal, both eyes and all related structures Neck Other: Supple with no lymphadenopathy, thyroid gland nonpalpable, no carotid bruit Chest Breast/axilla palpation: normal palpation of the breasts Resp Auscultation: clear to auscultation bilaterally Cardio Other: S1-S2 present regular rate and rhythm GI Inspection: Yes normal to inspection Palpation (GI): Soft to palpation, nontender, no guarding and no masses Back/Spine/Pelvis Back: No back tenderness Skin General skin exam: no rashes or lesions noted Neuro General: patient oriented x3, gait normal, tone normal, moves all extremities and no focal motor deficits Extrem General: Yes full ROM, Yes no joint enlargement, Yes no clubbing, cyanosis or edema and Yes no calf tenderness Psych Appearance: grossly normal and well kempt Mental Status: mental status grossly normal Speech and movement: Normal speech and movement present Affect: normal affect Attitude: cooperative Thought process: Normal thought process present Thought content: Normal thought content present Results Reviewed Results Reviewed: Name: Pedro Luis Dorman Age/Sex: 64/F : 1960 Unit#: [id number] Attend Dr: Joelle Chaudhry MD Re12/30/24 Status: DEP [facility] Disch: SPEC : [id number] HAIM: 12/30/24 STATUS: COMP REQ : [id number] RECD: 12/30/[address]: Joelle Chaudhry MD COMP: 12/30/24 ENTERED: 12/30/[address] [facility] DR: ORDERED: Met Prof Fast, AST, ALT, Lipid Panel, Vitamin D 25-OH Test Result Flag Reference Sodium 143 135-145 mmol/L Potassium 4.4 3.3-5.1 mmol/L CL 111 H 96-108 mmol/L CO2 22 22-29 mmol/L Gap 14 12-20 BUN 17 H 9-16 mg/dL Creat 0.81 0.5-1.4 mg/dL eGFR > 60 Chronic Kidney Disease: Estimated GFR < 60 mL/min/1.73m2 Severe Kidney Disease: Estimated GFR < 15 mL/min/1.73m2 FBS 104 H 60-99 mg/dL A fasting glucose from 100-125 mg/dl is considered impaired (pre-diabetes). CA 9.2 # 8.4-10.2 mg/dL AST (GOT) 29 5-31 U/L ALT (GPT) 24 0-31 U/L Triglyceride 83 <150 mg/dL Desirable Triglyceride: less than 150 mg/dL Borderline High Triglyceride 150-199 mg/dL High Triglyceride: 200-499 mg/dL Very High Triglyceride: greater than or equal to 5OO mg/dL Cholesterol 167 <200 mg/dL Desirable Cholesterol: less than 200 mg/dL Borderline High Cholesterol: 200-239 mg/dL High Cholesterol: greater than 239 mg/dL LDL Calculated 101 H <100 mg/dL Desirable LDL: less than 100 mg/dL Near Optimal/Above Optimal LDL: 110-129 mg/dL Borderline High LDL: 130-159 mg/dL High LDL: 160-189 mg/dL Very High LDL: greater than or equal to 190 mg/dL HDL 50 >40 mg/dL Desirable HDL: greater than 40 mg/dL Note: This HDL assay may give artificially low results in patients with liver disease. 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 Recommended dental visit every 6 months and regular eye exams, at least every 2 years. Take adequate calcium in diet and vitamin-D 3 at 2000 IU per cap once a day, in addition to w eight-bearing exercises to help maintain good muscle tone and weight control. Instructed to do self-breast exam, and continue to get yearly mammogram. She sees Dr. Maza for her regular colonoscopy screenings. Up-to-date vaccines but does not want to get any COVID booster or flu vaccine today (2) Mild intermittent asthma: Code(s): J45.20 - Mild intermittent asthma, uncomplicated Category: Medical Qualifiers: Asthma complication type: uncomplicated Qualified Code(s): J45.20 - Mild intermittent asthma, uncomplicated Plan: Uses albuterol inhaler as needed (3) GERD (gastroesophageal reflux disease): Code(s): K21.9 - Gastro-esophageal reflux disease without esophagitis Category: Medical Plan: On lansoprazole 30 mg daily , to have a repeat upper endoscopy done by Dr. Sanchez in 2026 (4) Dyslipidemia: Code(s): E78.5 - Hyperlipidemia, unspecified Category: Medical Plan: Fasting lipids are within normal limits continued on atorvastatin 20 mg daily (5) Essential hypertension: Code(s): I10 - Essential (primary) hypertension Category: Medical Plan: Blood pressure at goal of less than 130/80. Continue with amlodipine and lisinopril at the same dose. Reinforced importance of following a low sodium diet, getting regular exercise, and lowering stress levels. 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 Maza who does colonoscopy screenings every year (8) Impaired fasting glucose: Code(s): R73.01 - Impaired fasting glucose Category: Medical Plan: Your previous fasting blood sugars were elevated above 100 mg/dL. Impaired glucose metabolism increases the risk for developing diabetes mellitus type 2, as well as heart attack and stroke later on. Lifestyle changes that promotes weight loss, healthy eating habits, and regular exercise are important, and can prevent the progression to diabetes (9) Advance directive discussed with patient: Code(s): Z71.89 - Other specified counseling Plan: Initiated the conversation about Advanced Directives. Advanced Directives help patients prepare for current and future decisions about their medical treatment and place of care. Discussed with patient that it is a process where a patients current condition and prognosis are reviewed, their wishes for information regarding their illness are elicited, and likely medical dilemmas are presented and options discussed. Healthcare proxy form completed today. The form can be amended as needed, reviewed yearly and make changes as needed Medications: New lansoprazole 30 mg PO DAILY 30 caps 0RF
--- OUTSIDE RECORDS SUMMARY | 2025-02-19 20:00 | XMS_ITS | Encounter Summary ---
Author Organization [employer] Address [address] [place] [address] Care Team Providers Care Case Manager Name Role Phone Joelle Chaudhry MD Primary Care Provider [phone] Reason for Visit * Reason Onset Date Comments special procedure 01/30/2025 Encounter Details Date Type Department Care Team (Late st Contact Info) Description 01/30/2025 Telephone Gastroenterology - [address] [facility] [address] [place] [address] Octavio Doyle MD [address] [place] [phone] Social History Tobacco Use Types Packs/Day Years Used Date Smoking Tobacco: Never Assessed Comments Unknown Sex and Gender Information Value Date Recorded Sex Assigned at Not on file Legal Sex Female 9:36 AM EST Gender Identity Not on file Sexual Orientation Not on file documented as of this encounter Progress Notes * Chiqui Padilla - 02/17/2025 10:31 AM EDT Scheduled * Thalia Montemayor - 02/17/2025 9:57 AM EDT Patient called to book, says she usually gets one 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 * Amber Bahena MA - 02/06/2025 10:24 AM EDT PATIENT NOT DUE UNTIL 06/21/2026. RECALL CREATED, SCANNED OLD GI PAPER CHART * Elizabeth Em MA - 02/04/2025 11:21 AM EDTAddended by: ELIZABETH EM on: 02/04/2025 11:21 AM Modules accepted: Orders * Elizabeth Em MA - 02/04/2025 11:20 AM EDT Meds and allergies updated * Felicia Calvin - 02/04/2025 9:10 AM EDT Referral received from Dr Joelle Chaudhry office for colon--passing to [facility] for meds and allergy update. documented in this encounter Plan of Treatment Not on file documented as of this encounter Visit Diagnoses Not on filedocumented in this encounter Historical Medications * This list may reflect changes made after this encounter. sertraline 150 mg capsule Take 150 mg by mouth 1 (one) time each day. LORazepam (ATIVAN) 0.5 mg tablet Take 1 tablet (0.5 mg total) by mouth every 6 (six) hours if needed for anxiety. Max Daily Amount: 2 mg lansoprazole (PREVACID) [address] capsule Take 1 capsule (30 mg total) by mouth 1 (one) time each day before breakfast. Do not crush or chew. fluticasone HFA (FLOVENT HFA) 110 mcg/actuation inhaler Inhale 1 puff by mouth 2 (two) times a day. Rinse mouth with water after use to reduce aftertaste and incidence of candidiasis. Do not swallow. CHOLECALCIFEROL, VITAMIN D3, ORAL Take 25 mcg by mouth. calcium citrate-vitamin D3 200 mg-6.25 mcg (250 unit) tablet Take by mouth. atorvastatin (LIPITOR) 20 mg tablet Take 1 tablet (20 mg total) by mouth at bedtime. amLODIPine (NORVASC) 10 mg tablet Take 2.5 mg by mouth 1 (one) time each day. albuterol HFA (PROAIR HFA ; PROVENTIL HFA ; VENTOLIN HFA) 90 mcg/actuation inhaler Inhale 2 puffs by mouth every 6 (six) hours if needed for wheezing. QUEtiapine (SEROquel) 100 mg tablet Take 1 tablet (100 mg total) by mouth at bedtime. 03/25/2024 traZODone (DESYREL) 50 mg tablet Take 1 tablet (50 mg total) by mouth at bedtime. 03/24/2024 lisinopriL (PRINIVIL,ZESTRI L) 10 mg tablet Take 1 tablet (10 mg total) by mouth 1 (one) time each day. 04/01/2024 added in this encounter Care Teams Case Manager Relationship Specialty Start Date End Date Joelle Chaudhry MD [address] [place] [address] PCP - General Internal Medicine 02/04/25 documented as of this encounter
--- OUTSIDE RECORDS SUMMARY | 2025-02-19 20:00 | XMS_ITS | Clinical Summary ---
Author Organization [facility] 299 [facility] Address [address] [place] [address] Phone Care Team Providers Care Radio Program Checker Name Role Phone Joelle Chaudhry MD Primary Care Provider Allergies Active Allergy Reactions Criticality Noted Date Comments Vaccine Adjuvant System, As01b Liposomal Rash 02/04/2025 Varicella-Zoster Virus Glyco protein E, Recombinant Rash 02/04/2025 Medications lisinopriL (PRINIVIL,ZESTR IL) 10 mg tablet Take 1 tablet (10 mg total) by mouth 1 (one) time each day. 4 Active traZODone (DESYREL) 50 mg tablet Take 1 tablet (50 mg total) by mouth at bedtime. 4 Active QUEtiapine (SEROquel) 100 mg tablet Take 1 tablet (100 mg total) by mouth at bedtime. 4 Active albuterol HFA (PROAIR HFA ; PROVENTIL HFA ; VENTOLIN HFA) 90 mcg/actuation inhaler Inhale 2 puffs by mouth every 6 (six) hours if needed for wheezing. Active amLODIPine (NORVASC) 10 mg tablet Take 2.5 mg by mouth 1 (one) time each day. Active atorvastatin (LIPITOR) 20 mg tablet Take 1 tablet (20 mg total) by mouth at bedtime. Active calcium citrate-vitamin D3 200 mg-6.25 mcg (250 unit) tablet Take by mouth. Activ e CHOLECALCIFEROL , VITAMIN D3, ORAL Take 25 mcg by mouth. Active fluticasone HFA (FLOVENT HFA) 110 mcg/actuation inhaler Inhale 1 puff by mouth 2 (two) times a day. Rinse mouth with water after use to reduce aftertaste and incidence of candidiasis. Do not swallow. Active lansoprazole (PREVACID) [address] capsule Take 1 capsule (30 mg total) by mouth 1 (one) time each day before breakfast. Do not crush or chew. Active LORazepam (ATIVAN) 0.5 mg tablet Take 1 tablet (0.5 mg total) by mouth every 6 (six) hours if needed for anxiety. Max Daily Amount: 2 mg Active sertraline 150 mg capsule Take 150 mg by mouth 1 (one) time each day. Active bisacodyL (DULCOLAX) 5 mg EC tablet Take 2 tablets by mouth right before beginning bowel prep. See instructions provided by the office 2 tablet Active polyethylene glycol (Golytely) 236-22.74-6.74 -5.86 gram solution Take 4L by mouth once for one dose. May substitue any PEG. Starting at 2PM the day before your procedure drink 1 8oz glasses at your own pace until you complete half of the gallon. Finish 2nd half of the gallon at 8PM. 4000 mL 5 Active Encounters Date Type Department Care Team Description 01/30/2025 Telephone Gastroenterology - [address] [facility] [address] [place] [phone] Octavio Doyle MD from Last 3 Months Social History Tobacco [...] (1 - Tdap) 1980 Cervical Cancer Screening: Pap Smear 1982 Pneumococcal Vaccine: 50+ Years (1 of 1 - PCV) 2011 Zoster Vaccines (1 of 2) 2011 HIV Screening 03/22/2022 Hepatitis C Screening 03/22/2022 Social Influencers of Health Screening 03/22/2022 Depression Screening 04/24/2024 COVID-19 Vaccine ( - season) 2024 Influenza Vaccine (#1) 2024 Colorectal Cancer Screening: Colonoscopy 02/06/2035 02/06/2025, 02/06/2025, 02/06/2025, Additional history exists RSV Immunization Adult Patients (1 - 1-dose 75+ series) 2036 HIB [...] to complete this topic RSV Immunization Patients Under 20 months Aged Out No longer eligible based on patient's age to complete this topic Varicella Vaccines Aged Out No longer eligible based on patient's age to complete this topic Procedures Procedure Name Priority Date/Time Associated Diagnosis Comments COLONOSCOPY Routine 02/06/2025 10:14 AM EDT EXTERNAL ENDOSCOPY REPORT Routine 02/06/2025 10:13 AM EDT COLONOSCOPY Routine 02/06/2025 10:10 AM EDT COLONOSCOPY Routine 02/06/2025 10:09 AM EDT EXTERNAL ENDOSCOPY REPORT Routine 02/06/2025 10:07 AM EDT COLONOSCOPY Routine 02/06/2025 10:05 AM EDT COLONOSCOPY Routine 02/06/2025 10:04 AM EDT COLONOSCOPY Routine 02/06/2025 10:02 AM EDT COLONOSCOPY Routine 02/06/2025 10:01 AM EDT EXTERNAL ENDOSCOPY REPORT Routine 02/06/2025 10:00 AM EDT COLONOSCOPY Routine 02/06/2025 9:58 AM EDT COLONOSCOPY Routine 02/06/2025 9:56 AM EDT COLONOSCOPY Routine 02/06/2025 9:50 AM EDT COLONOSCOPY Routine 02/06/2025 9:46 AM EDT COLONOSCOPY Routine 02/06/2025 9:41 AM EDT COLONOSCOPY Routine 02/06/2025 9:16 AM EDT COLONOSCOPY Routine 02/06/2025 9:13 AM EDT COLONOSCOPY Routine 02/06/2025 9:11 AM EDT COLONOSCOPY Routine 02/06/2025 9:07 AM EDT from Last 3 Months Results * COLONOSCOPY (02/06/2025 10:14 AM EDT) Only the most recent of16 resultswithin the time period is included. Anatomical Region Laterality Modality Endoscopy us Historical Provider GI~PROCEDURE ORDERABLES F inal Result * External Endoscopy (02/06/2025 10:13 AM EDT) Only the most recent of3 resultswithin the time period is included. Anatomical Region Laterality Modality Endoscopy us Historical Provider GI~PROCEDURE ORDERABLES F inal Result from Last 3 Months [place] [id number] [employer] Member Subscriber Plan / Payer (Ef fective 2020-Present) Name:PEDRO LUIS ROJAS Relation to Subscriber:Spouse Name:PATTY ROJAS Date of :1961 Address: [address] [place] [address] SARAH [place] Payer ID:[id number] (NAIC) Type:Not on file Address: [facility] [id number] [place] [phone] [place] [id number] Care Teams Radio Program Checker Relationship Specialty Start Date End Date Joelle Chaudhry MD [address] [place] [phone] PCP - General Internal Medicine 02/04/25
--- OUTSIDE RECORDS SUMMARY | 2025-02-19 20:00 | XMS_ITS | Data Portability ---
Author Organization [place] - [facility], Allergy Address [address] [address] Care Team Providers Care Fbi Special Agent Name Role Phone GAVIN DUNN Referring Provider Assessment Encounter Date Assessment Date [...] of pharynx Active [id number] DIVYA JULIEN MD [address], [address] , [place] - [facility] 08/26/2024 15:05:08 Problem Notes None recorded. Procedures Surgical History Date Name Laterality Status Provider Name and Address Organization Details Recorded Time 08/26/2024 FOL_DP completed DIVYA JULIEN MD 100 [facility],[address], [address], [place] - [facility] 08/25/2024 10:29:45 Imaging Results None recorded. Procedure [...] active Not Available Not Available Not Available D3-1999 active Not Available Not Avail able Not Available fluticasone 232 mcg-salmeter ol 14 mcg/actuatio n breath activated powdr Inhale 1 puff twice a day by inhalation route. active Not Available Not Available No t Available Vitals Date Recorded Body height Body mass index (BMI) Body weight Provider Name and Address Organization Details Last Updated DateTime 08/26/2024 165.1 cm 30 kg/m2 27740.63 g [facility] 08/26/2024 14:48:42 Social History None recorded. Functional Status None recorded. Mental Status None recorded. Family History Nothing Reported. Medical History No medical history recorded. Gynecological HistoryNo gynecological history recorded. Obstetrics History GPAL:G 0 P 0 0 0 0 Past Encounters Encounter ID Performer Location Encounter Start Date Encounter Closed Date Diagnosis/Indication Diagnosis SNOMED-CT Code Diagnosis ICD10 Code Diagnosis IMO Codes Diagnosis Note [id number] DIVYA JULIEN MD [facility] [address] [address] 08/26/2024 14:37:56 08/26/2024 15:05:23 Mass of pharynx 2570363160 2108 J39.2 [id number] Health Concerns Section Related Observation LastModified by Organization Detai ls LastModified Time None Recorded Concern Status LastModified by Organization Details LastModified Time None Recorded Advance Directives Directive None Recorded Payers Insurance Date Sequence Insurance Name Policy Number Policy [place] Covered Member ID Salinas Member ID Guarantor Name 08/23/2024 1 [facility] [id number] Hubert Dorman [id number] Pedro Lius Dorman Notes Date Note Type Note Provider Name and Address Organization Details Recorded Time 08/26/2024 text/html ROS as noted in the HPI right pharynx masstobacco - stopped around 2000no throat pain, no hemoptysisno imagingno prior throat surgerynormal swallow 2/28/24 Link MEJIA noted small nodule right posterior pharynx 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
== END 2025-02-19 16:37 | disposition home or self-care (01) ==
PROVIDERS: PCP Internal Medicine; Visit Provider Internal Medicine
DX: Z00.01 Encounter for general adult medical examination with abnormal findings (principal); J45.20 Mild intermittent asthma, uncomplicated; K21.9 Gastro-esophageal reflux disease without esophagitis; E78.5 Hyperlipidemia, unspecified; I10 Essential (primary) hypertension; F41.8 Other specified anxiety disorders; Z14.8 Genetic carrier of other disease; R73.01 Impaired fasting glucose; Z71.89 Other specified counseling; Z00.00 Encounter for general adult medical examination without abnormal findings

== ENCOUNTER → 2025-02-19 15:51 | Outpatient (BNVA) | payer OTHER, SELFPAY | PROVIDERS: PCP Internal Medicine; Visit Provider Internal Medicine | DX: Z00.01 Encounter for general adult medical examination with abnormal findings (principal); I10 Essential (primary) hypertension; E78.5 Hyperlipidemia, unspecified; K21.9 Gastro-esophageal reflux disease without esophagitis; J45.20 Mild intermittent asthma, uncomplicated; R78.5 Finding of other psychotropic drug in blood; F41.8 Other specified anxiety disorders; R73.01 Impaired fasting glucose; Z71.89 Other specified counseling; Z14.8 Genetic carrier of other disease; Z79.899 Other long term (current) drug therapy | CPT/HCPCS: 96127; 96160 ==